=== PATIENT | male | born 1950 | race Caucasian/White ===

== ENCOUNTER 2017-09-14 04:04 | Inpatient (IN) | payer BC ==
--- NOTE | 2017-09-14 04:14 | EDPHY ---
H & P Time Seen by Provider: 09/14/17 04:07 HPI/ROS: CC: Chest pain HPI: This 67-year-old male with past medical history including hyperlipidemia, hypothyroidism, borderline hyperglycemia and enlarged prostate presents to the emergency department this morning complaining of chest discomfort. States he went to bed at midnight and was feeling fine. The pain woke him up at 3:30 a.m.. It was in his central chest maybe slightly to the right and radiated " all over" and especially to his right elbow. He described the pain as sharp and rated it at a 7/10 at onset. Currently it is 2/10. He tried some Gaviscon without relief. He denied aggravating factors. He has no nausea, diaphoresis, or shortness of breath. He was at the gym this evening for the 2nd time this month after not going for quite some time. He lifted free weights only. Was not on the treadmill. He had no discomfort while at the gym. He does describe a few episodes of upper chest pressure when he walks briskly. He had an episode of this sort yesterday without any other associated symptoms. He states he had dinner at 5:00 p.m. yesterday consisting of green beans and pork. After the gym he had a slice of bread but drank a large amount of apple cider. His chest discomfort feels like when he had pneumonia and also when he has had reflux in the past. He has only had a few episodes of reflux. He has not had any recent workup on his heart. Had a nuclear stress test in [place] about 12 years ago and states it was negative. He is allergic to aspirin. He does not smoke. He drinks perhaps 1 glass of alcohol per month. No recent illness. REVIEW OF SYSTEMS: Constitutional: No fever, no chills. Eyes: No discharge. ENT: No sore throat. Respiratory: No cough, no shortness of breath. Cardiac: No palpitations. Gastrointestinal: No abdominal pain, no vomiting. Genitourinary: No dysuria. Musculoskeletal: No back pain. Occasional right knee pain. Skin: No rashes. Neurological: No headache. Source: Patient, Family () Exam Limitations: No limitations - Medical/Surgical History PMH: Past Medical History: Hyperlipidemia, hypothyroidism, impaired fasting glucose , enlarged prostate, elevated intra-ocular pressure thought to be early glaucoma , migraine headaches, pneumonia, arthritis right knee, colon polyps on colonoscopy 1 year ago. Past Surgical History: Thyroidectomy, Tonsillectomy, Sinus Surgery FH: Father had congenital valvular disease. Uncles had MS's later in life. No premature coronary artery disease. Allergies to Aspirin ("capillary breakage/leakage"), Penicillin (Hives), Epinephrine (palpitations during dental work x 2 separate occasions) PCP: Dr. Sheehan Hx Asthma: No Hx Chronic Respiratory Disease: No Hx Diabetes: No Hx Cardiac Disease: No Hx Renal Disease: No Hx Cirrhosis: No Hx Alcoholism: No Hx HIV/AIDS: No Hx Splenectomy or Spleen Trauma: No Other PMH: thyroid - Family History Significant Family History: Vascular disease - Social History Smoking Status: Never smoked Alcohol Use: Occasionally Drug Use: None Additional Social History: . Previously lived in [place]. From [facility]. 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 - Physical Exam Exam: General Appearance: Alert, anxious. Eyes: Pupils equal and round no pallor or injection. ENT, Mouth: Mucous membranes are moist. Respiratory: There are no retractions, lungs are clear to auscultation. Cardiovascular: Regular rate and rhythm. No murmur, gallops, or rubs. Gastrointestinal: Abdomen is soft and nontender, no masses, bowel sounds normal. Neurological: Awake and alert, sensory and motor exams grossly normal. Skin: Warm and dry, no rashes. Normal for ethnicity. Musculoskeletal: Neck is supple, nontender. No bruits. No JVD. Extremities are symmetrical, full range of motion. No edema. Psychiatric: Patient is oriented X 3, there is no agitation. DIFFERENTIAL DIAGNOSIS: After history and physical exam differential diagnosis was considered for but not limited to: Acute coronary syndrome, angina, aortic aneurysm, aortic dissection, gastroesophageal reflux, biliary disease, pancreatitis, pleuritic pain. Constitutional: Initial Vital Signs Temperature (C) 97.5 F 09/14/17 04:12 Heart Rate 79 09/14/17 04:12 Respiratory Rate 16 09/14/17 04:12 Blood Pressure 169/98 H 09/14/17 04:12 O2 Sat (%) 98 09/14/17 04:12 O2 Delivery Mode Nasal Cannula O2 (L/minute) 2 Allergies/Adverse Reactions: aspirin [Aspirin] Allergy (Severe, Verified 09/14/17 04:27) Other-Enter Comments Penicillins Allergy (Severe, Verified 09/14/17 04:27) Hives epinephrine Allergy (Intermediate, Verified 09/14/17 04:28) Other-Enter Comments Home Medications: Medication Instructions Recorded Levothyroxine [Synthroid 88 mcg 11/12/12 (RX)] Gaviscon Liquid 09/14/17 Medical Decision Making - Diagnostics EKG Interpretation: EKG # 1 at 0406 - normal sinus rhythm, heart rate 73, no acute ischemic changes EKG #2 at 0456 - normal sinus rhythm, heart rate 80, borderline prolonged QT. No acute ischemic changes. Similar to EKG [address] changes in lead 3 when compared to EKG 1. Imaging Results: Portable CXR - Slightly rotated; No infiltrate, no effusion, no pneumothorax. Mediastinum slightly widened most likely due to technique and slight rotation. Opacity LLL also seen on prior film but more pronounced on current film. Consider repeat 2 view chest x-ray. Imaging: I viewed and interpreted images myself ED Course/Re-evaluation: The patient was seen and examined. Vital signs reviewed. On admission his blood pressure was elevated at 160 9/98 mm of mercury. This drifted down to the 130s mm of mercury systolic prior to medication administration. The patient has an allergy to aspirin and therefore no aspirin was given. His 1st EKG was normal. He declined nitroglycerin as his pain was coming down and was now a 2/10 from 12/25. Chest x-ray showed no acute findings by my read, please refer to final radiology read. CBC and comprehensive metabolic panel including a lipase was remarkable only for an elevated blood glucose at 1:23 a.m.. His troponin came back elevated at 0.096. His pain was still 1/10 at this time and he agreed to try a single dose of sublingual nitroglycerin which relieved his discomfort completely. A 2nd EKG was very similar to the 1st without significant ischemic changes. There was nonspecific ST - T wave abnormalities isolated to lead 3 which was not seen on EKG 1, although there was mild baseline artifact on EKG 1. He has a heart score of 5. He will be transferred to the [facility] for further observation. Admission discussed with and accepted by Hospitalist, Dr. Alma Ladd. - Data Points Laboratory Results: Laboratory Results 09/14/17 04:10 09/14/17 04:10 09/14/17 09/14/17 04:10 04:10 WBC 11.32 10^3/uL H 10^3/uL (3.80-9.50) RBC 5.53 10^6/uL 10^6/uL (4.40-6.38) Hgb 16.1 g/dL g/dL (13.7-17.5) Hct 47.0 % % (40.0-51.0) MCV 85.0 fL fL (81.5-99.8) MCH 29.1 pg pg (27.9-34.1) MCHC 34.3 g/dL g/dL (32.4-36.7) RDW 13.4 % % (11.5-15.2) Plt Count 246 10^3/uL 10^3/uL (150-400) MPV 8.8 fL fL (8.7-11.7) Neut % (Auto) 48.0 % % (39.3-74.2) Lymph % (Auto) 39.8 % % (15.0-45.0) [place] % (Auto) 8.2 % % (4.5-13.0) Eos % (Auto) 3.2 % % (0.6-7.6) Baso % (Auto) 0.4 % % (0.3-1.7) Nucleat RBC Rel Count 0.0 % % (0.0-0.2) Absolute Neuts (auto) 5.44 10^3/uL 10^3/uL (1.70-6.50) Absolute Lymphs (auto) 4.50 10^3/uL H 10^3/uL (1.00-3.00) Absolute Monos (auto) 0.93 10^3/uL H 10^3/uL (0.30-0.80) Absolute Eos (auto) 0.36 10^3/uL 10^3/uL (0.03-0.40) Absolute Basos (auto) 0.05 10^3/uL 10^3/uL (0.02-0.10) Absolute Nucleated RBC 0.00 10^3/uL 10^3/uL (0-0.01) Immature Gran % 0.4 % % (0.0-1.1) Immature Gran # 0.04 10^3/uL 10^3/uL (0.00-0.10) Sodium 143 mEq/L mEq/L (135-145) Potassium 4.2 mEq/L mEq/L (3.5-5.2) Chloride 102 mEq/L mEq/L (97-110) Carbon Dioxide 26 mEq/l mEq/l (22-31) Anion Gap 15 mEq/L mEq/L (8-16) BUN 22 mg/dL mg/dL (7-23) Creatinine 1.2 mg/dL mg/dL (0.7-1.3) Estimated GFR > 60 Glucose 129 mg/dL H mg/dL (70-100) Calcium 9.3 mg/dL mg/dL (8.5-10.4) Total Bilirubin 0.5 mg/dL mg/dL (0.1-1.4) Conjugated Bilirubin 0.2 mg/dL mg/dL (0.0-0.5) Unconjugated Bilirubin 0.3 mg/dL mg/dL (0.0-1.1) AST 30 IU/L IU/L (17-59) ALT 50 IU/L IU/L (21-72) Alkaline Phosphatase 61 IU/L IU/L (38-126) Troponin I 0.096 ng/mL H ng/mL (0.000-0.034) Total Protein 7.3 g/dL g/dL (6.3-8.2) Albumin 3.8 g/dL g/dL (3.5-5.0) Lipase 154 IU/L IU/L (23-300) Medications Given: Discontinued Medications Nitroglycerin (Nitrostat) 0.4 mg SL EDNOW ONE Stop: 09/14/17 04:25 Last Admin: 09/14/17 04:27 Dose: Not Given Nitroglycerin (Nitrostat) 0.4 mg SL EDNOW ONE Stop: 09/14/17 04:50 Last Admin: 09/14/17 04:30 Dose: 0.4 mg Departure - Departure Disposition: [facility] Inpatient Acute Clinical Impression: Chest pain Condition: Good
[2017-09-14 04:20] LABS: PLATELET COUNT 246 10^3/uL (150-400)
[2017-09-14] MEDS ORDERED: NITROGLYCERIN 0.4 MG BTL SL ONE ×3 (04:22→04:49)
--- NOTE | 2017-09-14 04:50 | CPEKG ---
Heart Rate: 73 RR Interval: 822 P-R Interval: 164 QRSD Interval: 96 QT Interval: 404 QTC Interval: 446 P [place]: 44 QRS [place]: 2 T Wave [place]: 31 EKG Severity - NORMAL ECG - EKG Impression: SINUS RHYTHM Electronically Signed By: Charmaine Rogers 14-Sep-2017 05:57:17
--- NOTE | 2017-09-14 04:58 | CPEKG ---
Heart Rate: 80 RR Interval: 750 P-R Interval: 176 QRSD Interval: 92 QT Interval: 412 QTC Interval: 476 P [place]: 41 QRS [place]: -9 T Wave [place]: 18 EKG Severity - BORDERLINE ECG - EKG Impression: SINUS RHYTHM EKG Impression: BORDERLINE PROLONGED QT INTERVAL Electronically Signed By: Charmaine Rogers 14-Sep-2017 05:57:09
[2017-09-14] MEDS ORDERED: NITROGLYCERIN 2% 1 GM PACKET TP ONE ×2 (05:45→05:48)
--- NOTE | 2017-09-14 05:51 | CPEKG ---
Heart Rate: 64 RR Interval: 938 P-R Interval: 180 QRSD Interval: 92 QT Interval: 432 QTC Interval: 446 P [place]: 50 QRS [place]: 8 T Wave [place]: 19 EKG Severity - NORMAL ECG - EKG Impression: SINUS RHYTHM Electronically Signed By: Charmaine Rogers 14-Sep-2017 05:56:58
[2017-09-14] MEDS ORDERED: HYDROCODONE/APAP 5/325 TAB PO PRN (07:58)
[2017-09-14] MEDS ORDERED: ACETAMINOPHEN 325 MG TAB PO PRN ×2 (07:58→09:11)
[2017-09-14] MEDS ORDERED: ONDANSETRON 4 MG/2 ML VIAL IVP PRN ×2 (07:58→09:11)
[2017-09-14] MEDS ORDERED: NITROGLYCERIN 0.4 MG BTL SL PRN (08:11)
[2017-09-14] MEDS ORDERED: ONDANSETRON DISINTEGRATING 4 MG TAB PO PRN (09:11)
[2017-09-14] MEDS ORDERED: CLOPIDOGREL BISULFATE 75 MG TAB PO SCH (09:15)
[2017-09-14] MEDS: LEVOTHYROXINE 88 MCG TAB PO SCH (09:23)
[2017-09-14] MEDS: NS 1,000 ML IV SCH (09:23)
[2017-09-14] MEDS ORDERED: METOPROLOL TARTRATE 25 MG TAB PO SCH (09:30)
--- NOTE | 2017-09-14 10:08 | GHP ---
[f rep st] HISTORY AND PHYSICAL DATE OF ADMISSION: 09/14/2017 HISTORY OF PRESENT ILLNESS: The patient is a pleasant 67-year-old gentleman with history of prediabe jerzy and hypertension, in which he is not on any medications, who presents with chest pain. He has no ticed over the last couple of weeks that he has had an uncomfortable feeling in his throat with brisk walking, and then this morning at 3:30 a.m., he woke up with pressure in his chest. He took some Ga viscon and it did not help. He has a history of heartburn that does respond to Gaviscon, so he sough t care, where he was found to have an elevated troponin, but an unremarkable EKG. The patient does not appear to have had prior cardiac workup. He has pre diabetes and high blood pre ssure, which are not being treated. He has occasional lower extremity edema that is really the redmond in his socks. He does not have orthopnea or PND. He has not had fever or chills. He had a recent sinus infection treated with doxycycline. Patient is currently chest pain-free. REVIEW OF SYSTEMS: A complete 10-point review of systems conducted and negative, except as noted in the HPI. ALLERGIES: Aspirin, penicillins, and epinephrine. To aspirin, it sounds like he gets bruising, not anaphylaxis. HOME MEDICATIONS ARE: Levothyroxine and Tylenol. SOCIAL HISTORY: He is originally from [facility]. 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 He lives in the [facility]. He is a nonsmoker, rare alcohol. FAMILY HISTORY: Parents . PHYSICAL EXAMINATION: Temperature 37.1, blood pressure 141/83, pulse 79, breathing 15 times a minute , 96% on room air. In general, no acute distress. Sclerae are anicteric. Oropharynx clear. Mucous membranes are moist. Neck is supple without lymphadenopathy or JVD. Lungs are clear to auscultatio n bilaterally. Heart is S1, S2. Abdomen is soft, nontender, nondistended. Lower extremities show t race edema bilaterally. Calves are nontender. Skin without rash. Neurologic exam is nonfocal. LABORATORY DATA: Sodium is 142, potassium 4.2, chloride 102, bicarb 26, BUN 22, creatinine 1.2. LFT s normal. Troponin is 0.096 at 4:00 a.m. and at 6:00 a.m., it is 0.152. Lipase is 154. CBC shows a white count of 11.3, hematocrit 47, platelets 246,000. EKGs, interpreted by me, have shown sinus at 80 with normal axis and intervals. There are no ST or T -wave changes. He has some peak Ts across the precordium. Serial EKGs are essentially the same. Chest x-ray shows possible CHF versus poor inspiratory effort. I have discussed the case with URSULA Rojas, for the cardiology division. ASSESSMENT AND PLAN: This is a 67-year-old gentleman, who presents with ifq-TB-bdlheoifm myocardial infarction. 1. Nym-HN-ibtojvidz myocardial infarction. The patient is currently chest pain-free. He is likely a candidate for cardiac catheterization; however, the aspirin allergy is noted. Certainly, I think t hat the patient could probably tolerate aspirin. I have started him on Plavix and a beta danelle. I will check a lipid panel and A1c. 2. Hypothyroidism. Continue his levothyroxine. 3. Diabetes. The patient's glucose is relatively unremarkable. We will follow. We will check a he moglobin A1c. 4. Lower extremity edema. Echocardiogram probably indicated. We will wait for Cardiology to see jun spears. 5. Disposition. We will change him to inpatient status, given NSTEMI. /[id number]/MODL
--- NOTE | 2017-09-14 11:38 | PDMN ---
Medical Necessity Medical necessity: M230 DE-- NSTEMI 2 days - further monitoring , eval and tx needed
[2017-09-14] MEDS ORDERED: TEMAZEPAM 15 MG CAP PO PRN (12:00)
[2017-09-14] MEDS ORDERED: diphenhydrAMINE 25 MG CAP PO ONE (12:00)
[2017-09-14] MEDS ORDERED: DIAZEPAM 5 MG TAB PO ONE (12:00)
[2017-09-14] MEDS ORDERED: FAMOTIDINE 20 MG TAB PO ONE (12:00)
[2017-09-14] MEDS ORDERED: fentaNYL 100 MCG/2 ML INJ ONE (13:28)
[2017-09-14] MEDS ORDERED: LIDOCAINE 1% 300 MG/30 ML SDV ONE (13:28)
[2017-09-14] MEDS ORDERED: MIDAZOLAM 2 MG/2 ML VIAL ONE (13:29)
[2017-09-14] MEDS ORDERED: IOPAMIDOL (ISOVUE-370) 150 ML BTL IV ONE (13:29)
[2017-09-14] MEDS ORDERED: VERAPAMIL 5 MG/2 ML VIAL ONE (13:30)
[2017-09-14] MEDS ORDERED: HEPARIN 10,000 UNIT/10 ML MDV (1,000 UNIT/ML) ONE (13:31)
--- NOTE | 2017-09-14 13:42 | PDPROPOC ---
Sedation Plan of Care Sedation Plan of Care: vital signs stable, mental status noted, patient educated of risks, benefits, alternatives, patient can tolerate sedation ASA Classification: ASA 2 Planned drugs: fentanyl, midazolam Mallampati Score: Class 1 Mallampati Reference Image: Patient passed 3-3-2 rule?: Yes
--- NOTE | 2017-09-14 13:43 | PDHPUP ---
History & Physical Update H&P update statement: This history and physical update is based on an assessment of the patient which was completed after admission or registration (within 24 hours), but prior to the surgery/procedure. H&P update: H&P reviewed & patient examined, no change in patient's condition since H&P completed
--- NOTE | 2017-09-14 13:48 | ASMTCASEMG ---
Living Arrangements What is your living Answers: With Spouse arrangement? Who do you live with? Type Of Residence What kind of residence do Answers: House you live in? Discharge Plan Comments Coordination Status Comments Notes: Pts case reviewed in morning rounds. Pt is a 67 y/o man admitted for chest pain. Pt is currently NPO at this moment. Pt is being seen by cardiology. Pt will most likely d/c independent when medically stable. No therapies ordered at this time. CM available for changes. Plan: Independent Date Signed: 09/14/2017 01:47 PM Electronically Signed By:NIMCO Moreno
--- NOTE | 2017-09-14 14:15 | GCON ---
[f rep st] CONSULTATION CARDIOLOGY CONSULTATION. INDICATION FOR CARDIOLOGY CONSULTATION: Episode of chest pressure with elevated troponin levels. HISTORY OF PRESENT ILLNESS: The patient is a 67-year-old male with significant past history of borderline hypertension, borderline diabetes, hyperlipidemia, hypothyroidism. He reports yesterday, it had been multiple months since he had exercised routinely, due to work schedule. He had exercised last evening, extremely vigorously, came home. He was asymptomatic at that time but reporting significant thirst, drinking large amount of apple juice at that point. He proceeded with his regular routine evening and went to bed. He reported waking up at 3:30 this morning, and he described a midsternal chest heaviness, rating it as 6/10. He did feel like this was similar symptoms that he had with previous upper GI distress and GERD symptoms. Feeling that, initially attempting to sit up and trying to burp. He reported symptoms did not subside. He did notice some mild shortness of breath and, due to symptoms, came to the emergency department for further evaluation. Upon arrival, initial EKG did show sinus rhythm with notable peak T-waves in V2 through V4, but no acute ST or T-wave abnormalities. Initial troponin level was drawn which was 0.096. Patient was given 1 sublingual nitroglycerin which he reported helped symptoms significantly and was almost pain free. He was admitted to the PCU for further observation. Unfortunately, throughout the evening, his troponin levels have risen, and most recent troponin level taken at 9:54 this morning was 0.267. He reports at the time of examination, reporting since hospitalization, having a midsternal mild mid chest pressure that has been coming and going but only lasting for a few seconds, rating at 1/10. He has had nitroglycerin paste in place, which he feels his symptoms. Patient does report to me that, for the last few days, he has been noticing, when extreme exercise, of having a tightness in his throat. He denies any palpitations, orthopnea, PND, palpitations, edema, near syncope, or syncopal events. Reporting no symptoms suggestive of TIA or CVA. He does report most recently having a sinus infection, for which he was treated with doxycycline a few weeks ago. Patient's cardiac risk factors are age, sex, borderline hypertension, borderline diabetes, hyperlipidemia. PAST MEDICAL HISTORY: Includes borderline hypertension, borderline diabetes, hypothyroidism, history of hyperlipidemia for which the patient states that he had been on multiple statins in the past greater than 5 years ago, to which he experienced adverse reactions of back pain and leg pain and took himself off. PAST SURGICAL HISTORY: Includes previous sinus surgery, thyroidectomy, and tonsils and adenoids when he was a child. FAMILY HISTORY: Patient reports no significant family history of coronary artery disease, but he does say his father had congenital heart disease and at age 67 of unknown reason. Reporting Mother had history of multiple CVAs , dying of a stroke event, her third stroke. 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 He is . He has 2 adult children who are alive and well. Denies any smoking, reports occasional alcohol use, denies any illicit drug use. ALLERGIES: Stated allergy of aspirin, reporting causing significant itching and bleeding. He also reports allergies to penicillin and epinephrine. He reports he has been noted to be statin intolerant, but uncertain of the medications that he has been on. HOME MEDICATIONS: Acetaminophen 325 mg p.o. daily p.r.n., Synthroid 88 mcg p.o. daily. REVIEW OF SYSTEMS: A 10-point review of systems done on the patient all negative, except as mentioned above. PHYSICAL EXAMINATION: GENERAL APPEARANCE: Medium built, mildly obese male. He is alert and oriented to person, place, time, and situation. Appears to be under no acute distress at this time. VITAL SIGNS: Current blood pressure is 140/84, heart rate of 81, respirations 18, saturating 95% on room air. Temperature of 36.8 degrees Celsius. HEENT: Head is normocephalic. Lips and tongue are pink and moist with no signs of cyanosis. Conjunctivae pink. NECK: Trachea is midline, +2 carotid pulses bilateral. No auscultated bruits. No jugular vein distention. RESPIRATORY: Lungs are clear to auscultation. No rhonchi, rales, or wheezes. No accessory muscle use. No intercostal muscle retraction noted. CARDIAC: Regular rate, regular rhythm. S1, S2. No S3, S4, gallops, rubs, or murmur. ABDOMEN: Soft, nontender, bowel sounds x4 quadrants. No organomegaly. No palpable masses. SKIN: [place], warm, dry. No cyanosis, no clubbing, no peripheral edema. VASCULAR: +2 carotids bilateral, +2 radials bilateral, +1 dorsal pedal and posterior tibial pulses bilateral. DATA REVIEWED: Laboratory studies drawn today show WBC of 11.32, hemoglobin of 16.1, hematocrit of 47.0, platelet count 246. Sodium 143, potassium 4.2, chloride 102, CO2 of 26, BUN 22, creatinine 1.2, glucose 129, calcium 9.3, total bilirubin 0.5, AST 30, ALT 50, alkaline phosphatase 62, total protein 7.3 , albumin 3.8. Patient has had 3 troponin levels, initial 0.096, repeated at 6 a.m. was 0.152 and, at 9:30 this morning, it was 0.267. Lipase was 154. Fasting lipid panel done today showed triglycerides 136, total cholesterol 168, LDL 108, HDL 33. Serial electrocardiograms have showed sinus rhythm, with peak T-waves in V2 through V4, but no acute ST or T-wave abnormalities. Chest x-ray done on admission show slight increase in linear left basilar opacity, most likely related to atelectasis or scarring, but no acute cardiopulmonary process. ASSESSMENT AND PLAN: 1. Chest pressure: Patient was reporting episode of chest pressure this morning and had reported episodes of neck/throat tightness with exercise over the last 1-2 weeks. Electrocardiogram today shows no acute ST or T-wave abnormalities suggesting of ischemia, but troponin levels have increased at least since hospitalization. Recommendation is patient undergo urgent cardiac catheterization for further evaluation for possible cardiac ischemia. Risks and benefits of this procedure were explained, both to the patient and . They verbalize understanding and agreement. The patient has a known allergy to aspirin. Hospitalist services started him on Plavix which he has already received a dose. He has also been started on beta danelle of Lopressor. Due to the acuteness of him going to the cardiac catheterization, will hold off on starting him on anticoagulation at this time, for anticipation of cath within the next 30-40 minutes. Further recommendations will come postcatheterization. 2. Hyperlipidemia: Patient with noted history of hyperlipidemia. Pending results of his catheterization, consideration of restarting him on statin therapies. He reports it has been multiple years since starting on these medications, but patient says he is willing to attempt. Would consider starting Crestor with goal of getting LDL of less than 70. 3. Hyperthyroidism: Patient has been resumed on home Synthroid level. Thank you for this consultation. Will be glad to follow along with you. More recommendations to come post cardiac catheterization. /[id number]/MODL MTDD
[2017-09-14] MEDS ORDERED: ATROPINE SULFATE 1 MG/10 ML SYR IVP PRN (16:07)
--- NOTE | 2017-09-14 16:58 | PDDXCAT ---
Diagnostic Cath Note - . Date: 09/14/17 Senior Media Planner: Robby Indication: CCC Class III and IV angina on medical treatment - Procedure Access: right wrist Procedure: left heart catheterization, coronary angiography, left ventriculogram - Materials Left Heart Cath size: 5F Left Heart Cath materials: JL3.5, pigtail, Jose Martin's R - Findings-Left Heart Catheterization LM: Unobstructed LAD: 75% stenosis of the proximal segment. 80-85% stenosis of the proximal diagonal. LCX: 99% occlusion of the dominant obtuse marginal branch RCA: Tandem 99% ulcerated plaque involving the mid and distal RCA EDP: 10 mm of mercury LVEF: 70% Wall motion: Normal Complications: None Estimated blood loss: <50ml Closure method: TR Band Assessment: Severe multivessel coronary disease with preserved LV systolic function Plan: Surgical consultation. Heparin. Aggressive secondary prevention. Patient Problems: Problems Problem Status Onset Chest pain Acute
[2017-09-14] MEDS ORDERED: HEPARIN 10,000 UNIT/10 ML MDV (1,000 UNIT/ML) IVP PRN (17:17)
[2017-09-14 18:33] LABS: PLATELET COUNT 231 10^3/uL (150-400)
[2017-09-14 18:41] LABS: INR 1.06 (0.83-1.16)
[2017-09-14] MEDS: METOPROLOL TARTRATE 25 MG TAB PO SCH (20:35)
[2017-09-14] MEDS: NITROGLYCERIN 2% 1 GM PACKET TP SCH (20:36)
[2017-09-14] MEDS: ROSUVASTATIN CALCIUM 20 MG TAB PO SCH (20:36)
[2017-09-14] MEDS ORDERED: CALCIUM CARBONATE 500 MG CHEWABLE TAB PO PRN (22:48)
[2017-09-14] MEDS ORDERED: MAG HYDROX/AL HYDROX/SIMETH 30 ML UDCUP PO PRN (22:48)
[2017-09-15] MEDS: NITROGLYCERIN 2% 1 GM PACKET TP SCH ×4 (00:53→18:00)
[2017-09-15] MEDS: LEVOTHYROXINE 88 MCG TAB PO SCH (04:57)
[2017-09-15] MEDS: METOPROLOL TARTRATE 25 MG TAB PO SCH ×2 (09:34→22:06)
--- NOTE | 2017-09-15 10:29 | SOAPPROG ---
SOAP Progress Note Assessment/Plan: Assessment: 1. Multivessel coronary artery disease with preserved LV systolic function. 09/15/17 10:23 Day 1. Status post cardiac catheterization for non-Q-wave myocardial infarction. This is associated with critical 3 vessel disease and preserved LV function. He is hemodynamically stable with out further chest pain. No evidence of heart failure. He is on heparin awaiting coronary artery bypass grafting. Optimize secondary risk factors. Heparin until coronary artery bypass grafting. Subjective: Doing well. Upped shower. No chest pain, shortness of breath. No PND orthopnea. Objective: Vital Signs Temp Pulse Resp BP Pulse Ox 37.2 C 67 15 108/62 92 09/15/17 07:31 09/15/17 07:31 09/15/17 07:31 09/15/17 07:31 09/15/17 07:31 Laboratory Results 09/15/17 03:24 09/15/17 03:24 09/14/17 09/15/17 09/16/17 05:59 05:59 05:59 Intake Total 1936 Output Total 1000 150 Balance 936 -150 PT 14.0 SEC (12.0-15.0) 09/14/17 18:26 INR 1.06 (0.83-1.16) 09/14/17 18:26 Physical Exam - Physical Exam General Appearance: alert, no apparent distress EENT: PERRL/EOMI Neck: non-tender, full range of motion Respiratory: chest non-tender, lungs clear, normal breath sounds Cardiac/Chest: normal peripheral pulses, regular rate, rhythm, No edema, No gallop, No JVD Peripheral Pulses: 1+: carotid (R), carotid (L), femoral (R), femoral (L) Abdomen: normal bowel sounds, non-tender, soft, No organomegaly Back: Normal inspection Skin: normal color, warm/dry Lymphatic: no adenopathy Extremities: normal range of motion, No pedal edema Neuro/Psych: no motor/sensory deficits, alert, normal mood/affect, oriented x 3 ICD10 Worksheet Patient Problems: Problems Problem Status Onset Chest pain Acute Review of Systems - Review of Systems Constitutional: denies: chills, fever EENTM: no symptoms reported Respiratory: no symptoms reported Cardiac: no symptoms reported Gastrointestinal/Abdominal: no symptoms reported Genitourinary: no symptoms Musculoskelatal: no symptoms Skin: no symptoms Neurological: no symptoms Hematologic/Lymphatic: no symptoms reported Immunologic/allergic: no symptoms reported
[2017-09-15] MEDS: HEPARIN/DEXTROSE 500 ML IV SCH (12:51)
--- NOTE | 2017-09-15 13:04 | HOSPPROG ---
Hospitalist Progress Note Assessment/Plan: 67 yo M w dm here w NSTEMI. cath reveals 3 vessel disease cad: on heparin CT surgery eval no chest sx on BB and statin will add aspirin dm: good control continue current rx hypothyroidism: check tsh proph: on IV heparin dispo: inpt risk: high Subjective: case d/w dr pickard. tele: no events (interp by me) Objective: Vital Signs Temp Pulse Resp BP Pulse Ox 37.2 C 67 15 108/62 92 09/15/17 07:31 09/15/17 07:31 09/15/17 07:31 09/15/17 07:31 09/15/17 07:31 Laboratory Results 09/15/17 03:24 09/15/17 03:24 09/14/17 09/15/17 09/16/17 05:59 05:59 05:59 Intake Total 1936 Output Total 1000 150 Balance 936 -150 PT 14.0 SEC (12.0-15.0) 09/14/17 18:26 INR 1.06 (0.83-1.16) 09/14/17 18:26 - Physical Exam Constitutional: no apparent distress, appears nourished Eyes: PERRL, anicteric sclera Ears, Nose, Mouth, Throat: moist mucous membranes, hearing normal Cardiovascular: regular rate and rhythym, no murmur, rub, or gallop Respiratory: no respiratory distress, no rales or rhonchi Gastrointestinal: normoactive bowel sounds, soft, non-tender abdomen Genitourinary: no bladder fullness, No molina in urethra Skin: warm, normal color Musculoskeletal: full muscle strength Neurologic: AAOx3 ICD10 Worksheet Patient Problems: Problems Problem Status Onset Chest pain Acute
--- NOTE | 2017-09-15 15:47 | ECHO ---
[email or web address] [address] Main: [phone] Fax: Transthoracic Echocardiogram Name: SHWETHA SALAZAR MR#: [id number] Study Date: 09/15/2017 Study Time: 02:40 PM Date of : 1950 Age: 67 year(s) Height: 180.3 cm (71 in.) Weight: 110.22 kg (243 lb.) BSA: 2.29 m2 Gender: Male Examination: Echo Indication: pre-op CABG; assess valves Image Quality: Technically Difficult Contrast: Requested by: Wally Munguia BP: 127 mmHg/76 mmHg Heart Rate: 64 bpm Rhythm: Normal sinus rhythm Indication: pre-op CABG; assess valves Procedure Staff Loop Tacker: Erica Whitmore [facility] Reading Physician: Richie Bustamante MD Requesting Provider: Conclusions: No pericardial effusion. Concentric left ventricular hypertrophy. Normal LV systolic function. No significant valvular abnormalities by Doppler 2 dimensional study. Measurements: Chambers Valvular Assessment AV/MV Valvular Assessment TV/PV Normal Normal Normal Name Value Range Name Value Range Name Value Range Ao Krystal (MM): 3.7 cm (2.2 cm-3.7 AV Vmax: 1.10 m/s (1 m/s-1.7 TR Vmax: 2.47 mm/s ( - ) cm) m/s) TR PGmax: 24 mmHg ( - ) IVSd (2D): 1.0 cm (0.6 cm-1.1 AV maxP mmHg ( - ) syst. PAP: 29 mmHg ( - ) cm) LVOT Vmax: 0.91 m/s (0.7 m/s-1.1 PV Vmax: 1.01 m/s (0.6 m/s-0.9 LVDd (2D): 4.2 cm (4.2 cm-5.9 m/s) m/s) cm) MV E Vmax: 0.73 m/s ( - ) PV PGmax: 4 mmHg ( - ) LVDs (2D): 2.7 cm (2.1 cm-4 MV A Vmax: 0.49 m/s ( - ) cm) MV E/A: 1.49 ( - ) LVPWd (2D): 1.1 cm (0.6 cm-1 cm) LVEF (BP): 67 % (>=55 %) RVDd(2D): 3.7 cm (1.9 cm-3.8 cmmm) Continued Measurements: Chambers Valvular Assessment AV/MV Valvular Assessment TV/PV Name Value Name Value Name Value LADs Lon.2 cm MV DecTime: 215 m/s CVP (est.): 5 mmHg LA Area: 17.7 cm2 MV E' Septal: 0.08 m/s LA Volume: 69 ml MV E/E' Septal: 9.50 LA Volume Index: 30.1 ml/m2 MV E/E' Lateral: 6.80 RA Area: 17.0 cm2 Patient: SHWETHA SALAZAR Study Date: 09/15/2017 Page 1 of 2 02:40 PM Findings: Left Ventricle: Normal size left ventricle. Mild concentric LV hypertrophy. Normal global systolic LV function. EF is 67 %. No regional wall motion abnormality. Normal diastolic LV function. Right Ventricle: Normal size right ventricle. Normal RV function. Left Atrium: The left atrium is normal in size. Right Atrium: The right atrium is normal in size. Mitral Valve: The mitral valve is normal in appearance and function. Trivial mitral valve regurgitation. No mitral stenosis is present. Aortic Valve: The aortic valve is tri-leaflet and functions normally. There is no aortic valve regurgitation. No aortic valve stenosis is present. Tricuspid Valve: The tricuspid valve is normal in appearance and function. Trivial to mild tricuspid valve regurgitation. The pulmonary artery pressure is normal. Pulmonic Valve: The pulmonic valve is normal in appearance and function. There is no pulmonic regurgitation seen. Aorta: The aorta is normal. Normal size aortic root measuring 3.7 cm. IVC: The IVC is not visualized. Pericardium: No pericardial effusion. (No Signature Object) Patient: SHWETHA SALAZAR Study Date: 09/15/2017 Page 2 of 2 02:40 PM [id number]
[2017-09-15] MEDS: NS 1,000 ML IV SCH (16:43)
[2017-09-15] MEDS ORDERED: LORazepam 0.5 MG TAB PO PRN (19:05)
[2017-09-15] MEDS: ROSUVASTATIN CALCIUM 20 MG TAB PO SCH (22:05)
[2017-09-16] MEDS: NITROGLYCERIN 2% 1 GM PACKET TP SCH ×4 (03:41→18:05)
[2017-09-16] MEDS: LEVOTHYROXINE 88 MCG TAB PO SCH (04:29)
[2017-09-16] MEDS: METOPROLOL TARTRATE 25 MG TAB PO SCH ×2 (08:00→22:34)
--- NOTE | 2017-09-16 13:38 | HOSPPROG ---
Hospitalist Progress Note Assessment/Plan: 67 yo M w dm here w NSTEMI. cath reveals 3 vessel disease cad: on heparin CT surgery tomorrow no chest sx on BB and statin will add aspirin dm: good control continue current rx hypothyroidism: check tsh proph: on IV heparin dispo: inpt risk: high Subjective: wishes to stay here for CABG. case d/w dr pickard Objective: Vital Signs Temp Pulse Resp BP Pulse Ox 36.7 C 67 16 118/59 L 95 09/16/17 12:03 09/16/17 12:03 09/16/17 12:03 09/16/17 12:03 09/16/17 12:03 Laboratory Results 09/16/17 03:11 09/15/17 03:24 09/15/17 09/16/17 09/17/17 05:59 05:59 05:59 Intake Total 1936 1035 300 Output Total 1000 750 800 Balance 936 285 -500 PT 14.0 SEC (12.0-15.0) 09/14/17 18:26 INR 1.06 (0.83-1.16) 09/14/17 18:26 - Physical Exam Constitutional: no apparent distress, appears nourished Eyes: PERRL, EOMI Ears, Nose, Mouth, Throat: moist mucous membranes, hearing normal Cardiovascular: regular rate and rhythym, no murmur, rub, or gallop Respiratory: no respiratory distress, no rales or rhonchi Gastrointestinal: normoactive bowel sounds, soft, non-tender abdomen Genitourinary: no bladder fullness, No molina in urethra Skin: warm, normal color Musculoskeletal: full muscle strength, normal joint ROM Neurologic: AAOx3 ICD10 Worksheet Patient Problems: Problems Problem Status Onset Chest pain Acute
--- NOTE | 2017-09-16 14:07 | ASMTCMCOM ---
CM Note CM Note Notes: Pts case discussed in morning rounds. Pt will need to have a bypass surgery. Pt will most likely have the open heart tomorrow. CM to follow for d/c needs. Plan: Independent Date Signed: 09/16/2017 02:07 PM Electronically Signed By:NIMCO Moreno
[2017-09-16] MEDS: HEPARIN/DEXTROSE 500 ML IV SCH (18:02)
[2017-09-16] MEDS ORDERED: CHLORHEXIDINE GLUC HIBICLENS 118 ML BTL TP SCH (21:00)
[2017-09-16] MEDS: ROSUVASTATIN CALCIUM 20 MG TAB PO SCH (22:34)
[2017-09-17] MEDS: NITROGLYCERIN 2% 1 GM PACKET TP SCH ×3 (00:30→14:19)
[2017-09-17] MEDS ORDERED: ceFAZolin 2 GM/SWFI 2 GM/20 ML SYR IVP ONE (06:00)
[2017-09-17] MEDS ORDERED: CITRATE DEXTROSE SOLN 500 ML BAG MISC ONE (06:00)
[2017-09-17] MEDS ORDERED: INSULIN REGULAR HUMAN 100 UNIT in NS 100 ML IV ONE (06:00)
[2017-09-17] MEDS ORDERED: niCARdipine/NACL 200 ML IV SCH (06:00)
[2017-09-17] MEDS ORDERED: NOREPINEPHRINE BITARTRATE 16 MG in NS 250 ML IV ONE (06:00)
[2017-09-17] MEDS ORDERED: VERAPAMIL 5 MG, NITROGLYCERIN 2.5 MG, HEPARIN 500 UNIT, SODIUM BICARBONATE 0.2 MEQ in L... MISC ONE (06:00)
[2017-09-17] MEDS ORDERED: AMINOCAPROIC ACID 5 GM/20 ML VIAL IV ONE (06:00)
[2017-09-17] MEDS ORDERED: MANNITOL 25% 12.5 GM/50 ML VIAL IVP ONE (06:00)
[2017-09-17] MEDS ORDERED: MUPIROCIN 2% 22 GM OINT NS ONE (06:00)
[2017-09-17] MEDS ORDERED: PHENYLEPHRINE HCL 50 MG in NS 250 ML IV ONE (06:00)
[2017-09-17] MEDS ORDERED: MILRINONE/DEXTROSE/100 ML BAG IV ONE (06:57)
[2017-09-17] MEDS ORDERED: CALCIUM CHLORIDE 1 GM/10 ML INJ ONE ×4 (06:57→16:25)
[2017-09-17] MEDS ORDERED: PROTAMINE SULFATE 50 MG/5 ML VIAL IVP ONE (06:57)
[2017-09-17] MEDS ORDERED: niCARdipine/NACL/200 ML BAG IV ONE (06:58)
[2017-09-17] MEDS ORDERED: DOPamine/DEXTROSE/250 ML BAG IV ONE (06:58)
[2017-09-17] MEDS ORDERED: HEPARIN 10,000 UNIT/10 ML MDV (1,000 UNIT/ML) ONE ×2 (06:58→07:00)
[2017-09-17] MEDS ORDERED: NA BICARBONATE 50 MEQ/50 ML VIAL ONE ×2 (06:58→15:14)
[2017-09-17] MEDS ORDERED: ceFAZolin 1 GM VIAL ONE ×4 (06:59→13:21)
[2017-09-17] MEDS ORDERED: AMIODARONE HCL 150 MG/3 ML VIAL ONE ×2 (06:59→07:00)
[2017-09-17] MEDS ORDERED: ADENOSINE 6 MG/2 ML VIAL ONE (06:59)
[2017-09-17] MEDS ORDERED: ALBUMIN 5% 250 ML BOTTLE IV ONE ×2 (06:59→13:43)
[2017-09-17] MEDS ORDERED: LIDOCAINE 2% 100 MG/5 ML SYR ONE ×2 (07:00→08:15)
[2017-09-17] MEDS ORDERED: MAGNESIUM SULFATE 1 GM/2 ML VIAL ONE (07:00)
[2017-09-17] MEDS ORDERED: CITRATE DEXTROSE SOLN 500 ML BAG ONE (07:00)
[2017-09-17] MEDS ORDERED: methylPREDNISolone SOD SUCC 1 GM/8 ML VIAL ONE (07:01)
[2017-09-17] MEDS ORDERED: PAPAVERINE HCL 60 MG/2 ML SDV ONE (07:25)
[2017-09-17] MEDS ORDERED: MINERAL OIL 10 ML VIAL ONE (07:25)
[2017-09-17] MEDS ORDERED: VERAPAMIL 5 MG/2 ML VIAL ONE (07:25)
[2017-09-17] MEDS ORDERED: MIDAZOLAM 2 MG/2 ML VIAL ONE ×2 (07:54→08:12)
[2017-09-17] MEDS ORDERED: REMIFENTANIL HCL 1 MG VIAL ONE ×2 (08:12→10:24)
[2017-09-17] MEDS ORDERED: fentaNYL 250 MCG/5 ML INJ ONE (08:12)
[2017-09-17] MEDS ORDERED: PROPOFOL/EMULSION 500 MG/50 ML BOTTLE IV ONE ×2 (08:12→10:28)
[2017-09-17] MEDS ORDERED: DEXAMETHASONE 4 MG/ML VIAL ONE (08:15)
[2017-09-17] MEDS ORDERED: ROCURONIUM 100 MG/10 ML VIAL ONE (08:15)
[2017-09-17] MEDS ORDERED: PHENYLEPHRINE HCL 100 MCG/ML SYR ONE ×2 (08:15→09:29)
[2017-09-17] MEDS ORDERED: ONDANSETRON 4 MG/2 ML VIAL ONE (08:15)
[2017-09-17] MEDS ORDERED: LIDOCAINE HCL 160 MG/4 ML LTA KIT TP ONE (08:18)
[2017-09-17] MEDS: LEVOTHYROXINE 88 MCG TAB PO SCH (09:31)
[2017-09-17] MEDS: METOPROLOL TARTRATE 25 MG TAB PO SCH (09:32)
[2017-09-17] MEDS ORDERED: ESMOLOL HCL 100 MG/10 ML VIAL IV ONE (10:36)
[2017-09-17] MEDS ORDERED: MIDAZOLAM 2 MG/2 ML VIAL IVP ONE (12:13)
--- NOTE | 2017-09-17 12:17 | PDANEPAE ---
ANE History of Present Illness 3 v CAD s/f 5v CABG ANE Past Medical History - Cardiovascular History Hx Hypertension: Yes Hx Chest Pain: Yes Hx Coronary Artery / Peripheral Vascular Disease: Yes Hx Palpitations: Yes - Pulmonary History Hx Oxygen in Use at Home: No Hx Sleep Apnea: Yes Sleep Apnea Screening Result - Last Documented: Positive - Endocrine History Hx Diabetes: Yes Hypothyroid: Yes Obesity: yes, moderate - Other Health History Other Health History: dyslipidemia - Chronic Pain History Chronic Pain: Yes ANE Review of Systems Review of Systems: - Exercise capacity Exercise capacity: <4 METS - Systems Cardiac: Reports: chest pain ANE Patient History - Allergies Allergies/Adverse Reactions: aspirin [Aspirin] Allergy (Severe, Verified 09/14/17 04:27) Other-Enter Comments Penicillins Allergy (Severe, Verified 09/14/17 04:27) Hives epinephrine Allergy (Intermediate, Verified 09/14/17 04:28) Other-Enter Comments - Home Medications Home medications: home medication list seen and reviewed Home Medications: Levothyroxine [Synthroid 88 mcg (RX)] 88 mcg PO DAILY06 11/12/12 [Last Taken ] Acetaminophen [Tylenol 325mg (*)] 325 mg PO DAILY PRN 09/14/17 [Last Taken Unknown] - NPO status NPO Since - Liquids (Date): 09/17/17 NPO Since - Liquids (Time): 00:01 NPO Since - Solids (Date): 09/17/17 NPO Since - Solids (Time): 00:01 - Anes Hx Anes Hx: no prior problems - Smoking Hx Smoking Status: Never smoked - Alcohol Use Alcohol Use: Occasionally - Family Anes Hx Family Anes Hx: none ANE Labs/Vital Signs - Labs Result Diagrams: 09/16/17 03:11 09/15/17 03:24 - Vital Signs Blood Pressure: 134/80 Heart Rate: 69 Respiratory Rate: 16 O2 Sat (%): 90 Height: 180 cm Weight: 108.3 kg ANE Physical Exam - Airway Mallampati Score: Class 2 Mouth exam: normal dental/mouth exam, stephens - Pulmonary Pulmonary: no respiratory distress - Cardiovascular Cardiovascular: regular rate and rhythym ANE Anesthesia Plan Anesthesia Plan: general endotracheal anesthesia Lines/Monitors: arterial line, central line, JORDYN Urgent/Emergent Case: Jan roberto completed preop but documented later for safe timely pt care
[2017-09-17] MEDS ORDERED: fentaNYL 100 MCG/2 ML INJ ONE (13:01)
[2017-09-17] MEDS ORDERED: ROCURONIUM 50 MG/5 ML VIAL ONE (13:02)
[2017-09-17] MEDS ORDERED: MAGNESIUM SULF 2 GM/WATER 50 ML BAG IV ONE (13:33)
[2017-09-17] MEDS ORDERED: ACETAMINOPHEN 325 MG TAB PO PRN (14:08)
[2017-09-17] MEDS ORDERED: MAGNESIUM HYDROXIDE 30 ML UDCUP PO PRN (14:08)
[2017-09-17] MEDS ORDERED: MEPERIDINE 25 MG/ML SYR IVP PRN (14:08)
[2017-09-17] MEDS ORDERED: D50W 25 GM/50 ML SYR IVP PRN (14:08)
[2017-09-17] MEDS ORDERED: ACETAMINOPHEN 650 MG SUPP PR PRN (14:08)
[2017-09-17] MEDS ORDERED: POTASSIUM Cl (KCl) 50 ML IV PRN (14:08)
[2017-09-17] MEDS ORDERED: ONDANSETRON 4 MG/2 ML VIAL IVP PRN (14:08)
[2017-09-17] MEDS ORDERED: PANTOPRAZOLE SODIUM 40 MG VIAL IVP ONE ×2 (14:08→17:30)
[2017-09-17] MEDS ORDERED: LACTULOSE 20 GM/30 ML UDCUP PO PRN (14:08)
[2017-09-17] MEDS ORDERED: CEPACOL LOZENGE PO PRN (14:08)
[2017-09-17] MEDS ORDERED: SODIUM CL NASAL 45 ML BTL EACHNARE PRN (14:08)
[2017-09-17] MEDS ORDERED: MAGNESIUM SULF 2 GM/WATER 50 ML IV ONE (14:08)
[2017-09-17] MEDS ORDERED: POLYETHYLENE GLYCOL 3350 17 GM PKT PO PRN (14:08)
[2017-09-17] MEDS ORDERED: NS 1,000 ML IV SCH (14:15)
[2017-09-17] MEDS ORDERED: INSULIN REGULAR HUMAN 100 UNIT in NS 100 ML IV SCH (14:30)
--- NOTE | 2017-09-17 14:53 | GOP ---
[f rep st] OPERATIVE REPORT DATE OF OPERATION: 09/17/2017 SURGEON: Wally Munguia DO CROP NUTRITION SCIENTIST: Mc Herbert PA-C. ANESTHESIA: Kevin Ann M.D. PREOPERATIVE DIAGNOSIS: Unstable angina pectoris with severe 3-vessel disease. POSTOPERATIVE DIAGNOSIS: Unstable angina pectoris with severe 3-vessel disease with undiagnosed diab etes mellitus. PROCEDURE PERFORMED: 1. Urgent coronary artery bypass grafting x5 with the left internal mammary artery to the left anter ior descending, right internal mammary artery to the diagonal, saphenous vein graft to the 1st OM, sa phenous vein graft to the 2nd OM and saphenous vein graft to the right coronary artery. 2. Endoscopic vein harvest of both upper legs. 3. Left atrial appendage occlusion with AtriClip. FINDINGS: Patient was noted to have severe 3-vessel disease with unstable angina pectoris. DESCRIPTION OF PROCEDURE: He presented to the operating room, on heparin. He was intubated. Monito ring lines were placed. He was prepped and draped in sterile classical manner. Sternotomy was perfo rmed. Both mammaries were harvested. Both mammaries measured 2.5-2.8 mm with excellent brisk flow. He was heparinized, cannulated. Bypass was begun. A cardioplegic arrest was obtained with antegrad e cardioplegia, topical hypothermia, and systemic cooling. Initially, the right coronary artery was grafted beyond the takeoff of the PDA where it was a 2.5 mm vessel with thickened gonzalez. The vein was excellent quality and it was then anastomosed to the ascen ding aorta in a standard fashion with a cross-clamp on. We then proceeded with grafting the posterol ateral circumflex which was a 2.6-2.8 mm vessel proximally. It was somewhat thickened, but had a lar ge lumen. The vein was then brought off the ascending aorta in similar fashion. We then grafted the 1st OM, which was a 2 mm vessel, with good quality vein which was brought off the ascending aorta. Rewarming was begun while the right internal mammary artery was grafted to the diagonal, which was a 2 mm vessel. It was tacked to the epicardium. We then found the LAD deeply intramuscular. It was e xposed. It was grafted with the mammary, which was an excellent 2.6 mm vessel and a 2.6 mm artery. It was tacked to the epicardium. We then ligated the left atrial appendage with a #35 mm hemoclip. The cross-clamp was removed with suction on the ascending aortic vent. It should be noted that vein was harvested from both upper legs above the knee by GUILHERME Valderrama, who first assisted throughout t he procedure. Spontaneous cardiac activity was noted to resume. The patient was rewarmed, weaned from bypass. The heparin was reversed with protamine after the transesophageal echo confirmed good biventricular func tion. The EKG remained normal. The thymic fat and pericardium were closed. He had 2 ventricular pac ing wires, 2 pleural and 1 mediastinal drain. The chest was closed in standard fashion Patient was returned to ICU in stable condition. /[id number]/MODL
--- NOTE | 2017-09-17 15:16 | CPEKG ---
Heart Rate: 67 RR Interval: 896 P-R Interval: 184 QRSD Interval: 90 QT Interval: 436 QTC Interval: 461 P [place]: 56 QRS [place]: 1 T Wave [place]: 45 EKG Severity - NORMAL ECG - EKG Impression: SINUS RHYTHM Electronically Signed By: David Hernandez 17-Sep-2017 23:33:14
[2017-09-17] MEDS: DEXMEDETOMIDINE HCL 400 MCG in NS 100 ML IV SCH ×2 (15:30→20:15)
--- NOTE | 2017-09-17 16:33 | GCON ---
[f rep st] CONSULTATION PULMONARY/CRITICAL CARE CONSULTATION. DATE OF CONSULTATION: 09/17/2017 REFERRING PHYSICIAN: Wally Munguia DO REASON FOR CONSULTATION: Evaluation and management of respiratory failure status post cardiothoracic surgery. HISTORY: The patient is a 67-year-old male, with a history of hypertension, who was admitted 4 days ago after doing some vigorous exercise for the 1st time in a while. After this, he felt okay but wok e up later that morning with a midsternal chest heaviness, as well as shortness of breath. He presen mynor to the emergency department, where he was found to have a mildly elevated troponin. The troponin continued to rise, and so the patient was taken to the catheterization lab, where he was found to helm ve severe 3-vessel disease. His troponins peaked at 0.317. He was treated with aspirin and beta blo cker and underwent a CABG x5 today. His intraoperative course was unremarkable, but he was kept intu bated. PAST MEDICAL HISTORY: Borderline hypertension, borderline diabetes, hypothyroid, hyperlipidemia. ADMISSION MEDICATIONS: Include levothyroxine and acetaminophen if. CURRENT MEDICATIONS: Aspirin, a beta danelle, and rosuvastatin have been started. ALLERGIES: Aspirin, penicillin, and epinephrine. 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 He is . He denies smoking and drinks al cohol occasionally. FAMILY HISTORY: Unremarkable. REVIEW OF SYSTEMS: Unobtainable. PHYSICAL EXAMINATION: GENERAL: The patient is intubated and sedated. VITAL SIGNS: His blood press ure is 114/70, with heart rate of 73. His temperature is 35.4. His oxygen saturations are 95% on 60 % oxygen. HEENT: Normocephalic and atraumatic. No icterus. NECK: No JVD. Trachea is midline. C HEST: Clear to auscultation. CARDIAC: Regular rate and rhythm without murmur. He has a midline st ernotomy scar. ABDOMEN: Soft and nontender. Bowel sounds are hypoactive. EXTREMITIES: No clubbin g, cyanosis, or edema. NEURO: The patient is sedated and unresponsive. He has no spontaneous motor movement currently. LABORATORY AND X-RAY: A chemistry group is unremarkable. Glucose is 121. Hemoglobin A1c is 6.9. A repeat hemoglobin is pending. A chest x-ray shows no acute infiltrates. The endotracheal tube is i n appropriate position. Images reviewed by me. ASSESSMENT: 1. Status post CABG x5. The patient's intraoperative course was unremarkable. 2. Postoperative respiratory failure. The patient is currently intubated and sedated. An arterial blood gas shows a normal pH at 7.34 and pCO2 is 36, with a bicarbonate of 19, consistent with a mild metabolic acidosis. His oxygenation is adequate. 3. Metabolic acidosis. This is mild. 4. Diabetes. The patient has diabetes, with a hemoglobin A1c of 6.9. Blood sugars are currently mi ldly elevated. RECOMMENDATIONS: 1. Hold sedation and wean and extubate as tolerated, if he meets weaning parameters. 2. Follow blood sugars closely, using insulin to maintain blood sugars in the low-mid 100s. /[id number]/MODL
[2017-09-17] MEDS: ALBUMIN 5% 250 ML IV PRN ×3 (16:59→21:37)
[2017-09-17] MEDS: fentaNYL 100 MCG/2 ML INJ IVP PRN ×2 (18:00→19:27)
[2017-09-17] MEDS ORDERED: KETOROLAC 30 MG/1 ML SDV IVP ONE (19:45)
[2017-09-17] MEDS ORDERED: fentanYL/NACL/100 ML BAG IV ONE (19:52)
[2017-09-17] MEDS ORDERED: fentaNYL/NACL 100 ML IV SCH (20:02)
[2017-09-17] MEDS: METOCLOPRAMIDE 10 MG/2 ML VIAL IVP PRN (21:29)
[2017-09-17] MEDS: ceFAZolin 2 GM/SWFI 2 GM/20 ML SYR IVP SCH (21:29)
[2017-09-17] MEDS: MUPIROCIN 2% 22 GM OINT NS SCH (21:31)
[2017-09-17] MEDS ORDERED: ceFAZolin 2 GM/DEXTROSE 100 ML IV SCH (22:00)
[2017-09-17] MEDS: SENNOSIDES/DOCUSATE SODIUM TAB PO SCH (23:27)
[2017-09-18] MEDS: DEXMEDETOMIDINE HCL 400 MCG in NS 100 ML IV SCH ×2 (01:49→05:47)
--- NOTE | 2017-09-18 02:07 | CPEKG ---
Heart Rate: 71 RR Interval: 845 P-R Interval: 176 QRSD Interval: 84 QT Interval: 416 QTC Interval: 453 P [place]: 82 QRS [place]: -12 T Wave [place]: 35 EKG Severity - NORMAL ECG - EKG Impression: SINUS RHYTHM Electronically Signed By: David Hernandez 19-Sep-2017 08:20:48
[2017-09-18 04:09] LABS: PLATELET COUNT 135 10^3/uL (150-400)
[2017-09-18] MEDS: HEPARIN 5,000 UNIT/0.5 ML SYR SC SCH ×3 (05:43→20:37)
[2017-09-18] MEDS: ceFAZolin 2 GM/SWFI 2 GM/20 ML SYR IVP SCH ×3 (05:43→20:27)
[2017-09-18] MEDS: LEVOTHYROXINE 88 MCG TAB PO SCH (06:26)
--- NOTE | 2017-09-18 08:13 | SOAPPROG ---
SOAP Progress Note Assessment/Plan: POD #1: Urgent CABGx5 (HUDDLESTON-LAD, MARIA FERNANDA-D1, SVG-OM1, SVG-OM2, SVG-RCA), AtriClip FABRIZIO, EVH BL thighs Unstable angina/severe 3VD s/p urgent CABGx5 - CTs to bulb suction, AL/FC out - Plavix for graft thromboprophylaxis ("allergy" to ASA), statin and beta- danelle for secondary prevention when appropriate - SCDs/heparin SQ for DVT prophylaxis - PT/OT - Transfer to PCU Acute blood loss anemia - Stable without the need for transfusions DM 2 (HgbA1c 6.9), untreated - Hospitalist managing - Will stop insulin gtt and start ISS Hypothyroidism - Continue Synthroid Subjective: Has pain when taking deep breaths, otherwise no complaints. Objective: Vital Signs Temp Pulse Resp BP Pulse Ox 37.2 C 80 27 H 110/63 94 09/18/17 07:00 09/18/17 07:00 09/18/17 07:00 09/18/17 07:00 09/18/17 07:00 Laboratory Results 09/18/17 03:56 09/18/17 03:56 09/17/17 09/18/17 09/19/17 05:59 05:59 05:59 Intake Total 826 1698.6 Output Total 950 1225 Balance -124 473.6 PT 14.0 SEC (12.0-15.0) 09/14/17 18:26 INR 1.06 (0.83-1.16) 09/14/17 18:26 Physical Exam - Physical Exam General Appearance: WD/WN, alert, no apparent distress EENT: No scleral icterus (R), No scleral icterus (L) Neck: normal inspection Respiratory: No respiratory distress Cardiac/Chest: regular rate, rhythm Abdomen: non-tender, soft, No distended Skin: normal color, warm/dry Extremities: No pedal edema Neuro/Psych: no motor/sensory deficits, alert, normal mood/affect, oriented x 3 ICD10 Worksheet Patient Problems: Problems Problem Status Onset Chest pain Acute Diabetes Acute S/P CABG x 5 Acute
[2017-09-18] MEDS ORDERED: fentaNYL 25 MCG PATCH TD ONE (09:46)
--- NOTE | 2017-09-18 09:51 | POSTANESTH ---
Post Anesthetic Evaluation Cardiovascular Status: Tx Hyper/Hypo-tension Respiratory Status: Tx Decrease in SpO2 Level of Consciousness/Mental Status: Can Participate in Eval Pain Control: Adequate, Prn Tx Ordered Nausea/Vomiting Control: Adequate, Prn Tx Ordered Complications Possibly Related to Anesthesia: None Noted
[2017-09-18] MEDS: CLOPIDOGREL BISULFATE 75 MG TAB PO SCH (10:13)
[2017-09-18] MEDS: HYDROCODONE/APAP 5/325 TAB PO PRN ×2 (10:14→15:49)
[2017-09-18] MEDS: ONDANSETRON DISINTEGRATING 4 MG TAB PO PRN (10:14)
[2017-09-18] MEDS: PANTOPRAZOLE SODIUM 40 MG TAB PO SCH ×2 (10:14→10:33)
[2017-09-18] MEDS: SENNOSIDES/DOCUSATE SODIUM TAB PO SCH ×2 (10:14→20:36)
[2017-09-18] MEDS: MUPIROCIN 2% 22 GM OINT NS SCH ×2 (10:15→21:52)
[2017-09-18] MEDS: INSULIN LISPRO 100 UNIT/ML SC SCH ×2 (12:37→17:12)
[2017-09-18] MEDS: traMADol 50 MG TAB PO PRN ×3 (13:18→21:52)
[2017-09-18] MEDS: METOPROLOL TARTRATE 25 MG TAB PO SCH ×2 (14:56→20:34)
--- NOTE | 2017-09-18 16:44 | HOSPPROG ---
Hospitalist Progress Note Assessment/Plan: 67 yo M admitted with NSTEMI. cath revealed 3 vessel disease and he underwent 5v cabg 3/. Medicine following for diabetes management alone. All other care per CV surgery. cad s/p urgent cabg x5: POD #1 post-op care per CT surgery cont plavix, BB, statin dm: diet controlled with recent a1c 6.9 agree with transition to SSI aaliyah-operatively could start metformin at d/c, noting normal Cr, though defer for now while acutely post-op hypothyroidism: check tsh proph: PETE dispo: inpt risk: high Subjective: Pt doing well. Some incisional chest wall pain. No fevers. Objective: Vital Signs Temp Pulse Resp BP Pulse Ox 37.3 C 90 24 H 139/70 H 92 09/18/17 14:50 09/18/17 15:08 09/18/17 14:50 09/18/17 15:08 09/18/17 15:08 Laboratory Results 09/18/17 03:56 09/18/17 09:20 09/17/17 09/18/17 09/19/17 05:59 05:59 05:59 Intake Total 826 1698.6 412 Output Total 950 1225 290 Balance -124 473.6 122 PT 14.0 SEC (12.0-15.0) 09/14/17 18:26 INR 1.06 (0.83-1.16) 09/14/17 18:26 - Physical Exam Constitutional: no apparent distress Eyes: PERRL Ears, Nose, Mouth, Throat: moist mucous membranes Cardiovascular: regular rate and rhythym, no murmur, rub, or gallop Respiratory: no respiratory distress, clear to auscultation Gastrointestinal: normoactive bowel sounds, soft, non-tender abdomen Skin: warm Musculoskeletal: full muscle strength Neurologic: AAOx3 Psychiatric: interacting appropriately ICD10 Worksheet Patient Problems: Problems Problem Status Onset Chest pain Acute Diabetes Acute S/P CABG x 5 Acute
[2017-09-19] MEDS: HYDROCODONE/APAP 5/325 TAB PO PRN ×6 (00:11→21:30)
[2017-09-19 04:09] LABS: PLATELET COUNT 177 10^3/uL (150-400)
[2017-09-19] MEDS: traMADol 50 MG TAB PO PRN ×3 (06:33→14:29)
[2017-09-19] MEDS: LEVOTHYROXINE 88 MCG TAB PO SCH (06:33)
[2017-09-19] MEDS: HEPARIN 5,000 UNIT/0.5 ML SYR SC SCH ×3 (06:34→21:32)
[2017-09-19] MEDS: ceFAZolin 2 GM/SWFI 2 GM/20 ML SYR IVP SCH (06:34)
--- NOTE | 2017-09-19 07:10 | SOAPPROG ---
SOAP Progress Note Assessment/Plan: POD #2: Urgent CABGx5 (HUDDLESTON-LAD, MARIA FERNANDA-D1, SVG-OM1, SVG-OM2, SVG-RCA), AtriClip FABRIZIO, EVH BL thighs Unstable angina/severe 3VD s/p urgent CABGx5 - CTx2 and PW removed, 1 CT remains - Plavix for graft thromboprophylaxis ("allergy" to ASA), statin and beta- danelle for secondary prevention when appropriate - Continue Tramadol/[place] for pain - SCDs/heparin SQ for DVT prophylaxis - PT/OT Acute blood loss anemia - Stable without the need for transfusions DM 2 (HgbA1c 6.9), untreated - Hospitalist managing Hypothyroidism - Continue Synthroid Subjective: Extreme pain when taking deep breaths. Objective: Vital Signs Temp Pulse Resp BP Pulse Ox 36.8 C 92 19 125/82 H 94 09/19/17 04:00 09/19/17 04:00 09/19/17 04:00 09/19/17 04:00 09/19/17 04:00 Laboratory Results 09/19/17 03:40 09/19/17 03:40 09/18/17 09/19/17 09/20/17 05:59 05:59 05:59 Intake Total 1698.6 1242 Output Total 1225 1210 225 Balance 473.6 32 -225 PT 14.0 SEC (12.0-15.0) 09/14/17 18:26 INR 1.06 (0.83-1.16) 09/14/17 18:26 Physical Exam - Physical Exam General Appearance: WD/WN, alert, mild distress EENT: No scleral icterus (R), No scleral icterus (L) Neck: normal inspection Respiratory: No respiratory distress Cardiac/Chest: tachycardia Abdomen: non-tender, soft, No distended Skin: normal color, warm/dry Extremities: No pedal edema Neuro/Psych: no motor/sensory deficits, alert, normal mood/affect, oriented x 3 ICD10 Worksheet Patient Problems: Problems Problem Status Onset Chest pain Acute Diabetes Acute S/P CABG x 5 Acute
--- NOTE | 2017-09-19 07:17 | HOSPPROG ---
Hospitalist Progress Note Assessment/Plan: 67 yo M admitted with NSTEMI. cath revealed 3 vessel disease and he underwent 5v cabg 3/. Medicine following for diabetes management alone. All other care per CV surgery. cad s/p urgent cabg x5: POD #2 post-op care per CT surgery cont plavix, BB, statin dm: diet controlled with recent a1c 6.9, bg's mostly 100's, had elevated bg 267 at bedtime last night change to ACHS SSI for bedtime coverage could start metformin at d/c, noting normal Cr, though defer for now while acutely post-op hypothyroidism: tsh normal, cont outpt levothyroxine pain: post-op / incisional pain. Pt was reportedly hallucinatory, which may be from long acting opiate (has fentanyl patch on) would consider d/c'ing fentanyl patch in favor of short acting pain meds for acute post-op pain, defer to CV surg team proph: PETE dispo: inpt risk: high Subjective: Pt has quite a bit of pain, RN notes some hallucinations. No fevers. Objective: Vital Signs Temp Pulse Resp BP Pulse Ox 36.8 C 92 19 125/82 H 94 09/19/17 04:00 09/19/17 04:00 09/19/17 04:00 09/19/17 04:00 09/19/17 04:00 Laboratory Results 09/19/17 03:40 09/19/17 03:40 09/18/17 09/19/17 09/20/17 05:59 05:59 05:59 Intake Total 1698.6 1242 Output Total 1225 1210 225 Balance 473.6 32 -225 PT 14.0 SEC (12.0-15.0) 09/14/17 18:26 INR 1.06 (0.83-1.16) 09/14/17 18:26 - Physical Exam Constitutional: no apparent distress Eyes: PERRL Ears, Nose, Mouth, Throat: moist mucous membranes Cardiovascular: regular rate and rhythym Respiratory: no respiratory distress, clear to auscultation Gastrointestinal: normoactive bowel sounds, soft, non-tender abdomen Skin: warm Musculoskeletal: full muscle strength Neurologic: AAOx3 Psychiatric: interacting appropriately ICD10 Worksheet Patient Problems: Problems Problem Status Onset Chest pain Acute Diabetes Acute S/P CABG x 5 Acute
[2017-09-19] MEDS: INSULIN LISPRO 100 UNIT/ML SC SCH ×4 (08:45→21:31)
[2017-09-19] MEDS: METOPROLOL TARTRATE 25 MG TAB PO SCH ×2 (08:45→21:29)
[2017-09-19] MEDS: SENNOSIDES/DOCUSATE SODIUM TAB PO SCH ×2 (08:46→21:31)
[2017-09-19] MEDS: CLOPIDOGREL BISULFATE 75 MG TAB PO SCH (08:46)
[2017-09-19] MEDS: PANTOPRAZOLE SODIUM 40 MG TAB PO SCH (08:46)
[2017-09-19] MEDS: MUPIROCIN 2% 22 GM OINT NS SCH (10:08)
--- NOTE | 2017-09-19 10:40 | ASMTCMCOM ---
CM Note CM Note Notes: Reviewed chart and discussed w/RN. Pt is POD#2, still w/chest tube and requiring 4-5L O2. PT recommnding home. Pt lives at home w/. DC needs tbd, CM will follow. Date Signed: 09/19/2017 10:39 AM Electronically Signed By:Marcella Rice RN
[2017-09-19] MEDS: ROSUVASTATIN CALCIUM 20 MG TAB PO SCH (21:31)
[2017-09-19] MEDS ORDERED: AMIODARONE HCL 100 ML IV ONE (22:25)
[2017-09-19] MEDS ORDERED: METOPROLOL TARTRATE 25 MG TAB PO ONE (22:25)
[2017-09-19] MEDS ORDERED: AMIODARONE HCL 200 ML IV ONE (22:25)
[2017-09-19] MEDS ORDERED: AMIODARONE HCL 540 MG in D5W 300 ML IV ONE (22:25)
[2017-09-20] MEDS: HYDROCODONE/APAP 5/325 TAB PO PRN ×5 (02:13→23:44)
[2017-09-20] MEDS: METOCLOPRAMIDE 10 MG/2 ML VIAL IVP PRN (02:30)
[2017-09-20] MEDS: ONDANSETRON DISINTEGRATING 4 MG TAB PO PRN (02:30)
[2017-09-20] MEDS ORDERED: AMIODARONE HCL 540 MG in D5W 300 ML IV ONE (04:30)
[2017-09-20] MEDS: HEPARIN 5,000 UNIT/0.5 ML SYR SC SCH ×3 (06:35→22:48)
[2017-09-20] MEDS: LEVOTHYROXINE 88 MCG TAB PO SCH (06:35)
[2017-09-20] MEDS ORDERED: FUROSEMIDE 20 MG/2 ML VIAL IVP ONE (07:00)
--- NOTE | 2017-09-20 07:27 | SOAPPROG ---
SOAP Progress Note Assessment/Plan: Assessment: POD#3 Urgent CABGx5 (HUDDLESTON-LAD, MARIA FERNANDA-D1, SVG-OM1, SVG-OM2, SVG-RCA), AtriClip ligation FABRIZIO, EVH bilat thighs Unstable angina/severe 3VD s/p urgent CABGx5 with bilateral mammaries - CTx2 and PW removed, 1 CT remains - Plavix for graft thromboprophylaxis ("allergy" to ASA), statin and beta- danelle for secondary prevention when appropriate - Continue Tramadol/[place] for pain - SCDs/heparin SQ for DVT prophylaxis - PT/OT Postoperative PAF - Converted to SR on amio. - Sufficient BP to uptitrate BB. - High threshold for anticoagulation as FABRIZIO excluded. Acute blood loss anemia - Stable without the need for transfusions DM 2 (HgbA1c 6.9), untreated - Hospitalist managing Hypothyroidism - Continue Synthroid Plan: Cont amio as per protocol. Lasix 20 mg IV x 1. Cont metoprolol 50 mg BID. Inc activity as tolerated. Consider chest tube removal later today. 09/20/17 07:25 Subjective: Tired today. Aware of heart racing last night. Some dyspnea at the time, no dizziness. Objective: Vital Signs Temp Pulse Resp BP Pulse Ox 36.7 C 91 16 134/78 H 92 09/20/17 04:00 09/20/17 04:00 09/20/17 04:00 09/20/17 04:00 09/20/17 04:00 Laboratory Results 09/20/17 02:45 09/20/17 02:45 09/19/17 09/20/17 09/21/17 05:59 05:59 05:59 Intake Total 1242 1380 Output Total 1210 1175 Balance 32 205 PT 14.0 SEC (12.0-15.0) 09/14/17 18:26 INR 1.06 (0.83-1.16) 09/14/17 18:26 Brief AF last noc, responsive to amio and addtl BB. SBPs robust. Stable suppl O2 req. Balanced I/Os. CXR -> hypoventilation, bibasilar atelectasis, abundant bowel gas. CTOP approaching removal criteria. WBC sl elev, but downward trending. Afeb. Prob leukemoid rxn. Physical Exam - Physical Exam General Appearance: alert, no apparent distress Respiratory: decreased breath sounds (bases), crackles (scattered), other ( cierra x 1 to bulb suction, serosang drainage) Cardiac/Chest: regular rate, rhythm, other (Sternototmy and bilat venotomies CDI ) Abdomen: non-tender, soft Skin: warm/dry Extremities: swelling (1+ dependent) ICD10 Worksheet Patient Problems: Problems Problem Status Onset Chest pain Acute Diabetes Acute S/P CABG x 5 Acute
[2017-09-20] MEDS ORDERED: METOPROLOL TARTRATE 5 MG/5 ML INJ IVP ONE (07:40)
[2017-09-20] MEDS: traMADol 50 MG TAB PO PRN ×3 (07:40→18:32)
[2017-09-20] MEDS: SENNOSIDES/DOCUSATE SODIUM TAB PO SCH ×2 (07:42→23:45)
[2017-09-20] MEDS: CLOPIDOGREL BISULFATE 75 MG TAB PO SCH (07:42)
[2017-09-20] MEDS: METOPROLOL TARTRATE 50 MG TAB PO SCH ×2 (07:42→20:07)
--- NOTE | 2017-09-20 08:32 | HOSPPROG ---
Hospitalist Progress Note Assessment/Plan: 67 yo M admitted with NSTEMI. cath revealed 3 vessel disease and he underwent 5v cabg 3/. Medicine following for diabetes management alone. All other care per CV surgery. cad s/p urgent cabg x5: POD #3 post-op care per CT surgery on plavix, BB, statin dm: diet controlled with recent a1c 6.9, bg's mostly 100's cont ACHS SSI could start metformin at d/c, noting normal Cr, though defer for now while acutely post-op hypothyroidism: tsh normal, cont outpt levothyroxine pain: post-op / incisional pain. Pt was reportedly hallucinatory, possibly from Fentanyl patch, which was removed. pain better controlled on po meds proph: PETE dispo: inpt risk: high Subjective: Doing fine, pain control improved. Objective: Vital Signs Temp Pulse Resp BP Pulse Ox 36.7 C 91 16 134/78 H 92 09/20/17 04:00 09/20/17 04:00 09/20/17 04:00 09/20/17 04:00 09/20/17 04:00 Laboratory Results 09/20/17 02:45 09/20/17 02:45 09/19/17 09/20/17 09/21/17 05:59 05:59 05:59 Intake Total 1242 1380 Output Total 1210 1175 Balance 32 205 PT 14.0 SEC (12.0-15.0) 09/14/17 18:26 INR 1.06 (0.83-1.16) 09/14/17 18:26 - Physical Exam Constitutional: no apparent distress Eyes: PERRL Ears, Nose, Mouth, Throat: moist mucous membranes Cardiovascular: regular rate and rhythym Respiratory: no respiratory distress Skin: warm Musculoskeletal: full muscle strength Neurologic: AAOx3 Psychiatric: interacting appropriately ICD10 Worksheet Patient Problems: Problems Problem Status Onset Chest pain Acute Diabetes Acute S/P CABG x 5 Acute
[2017-09-20] MEDS: INSULIN LISPRO 100 UNIT/ML SC SCH ×4 (08:37→22:48)
[2017-09-20] MEDS: PANTOPRAZOLE SODIUM 40 MG TAB PO SCH (09:00)
[2017-09-20] MEDS: AMIODARONE HCL 200 MG TAB PO SCH (20:07)
[2017-09-20] MEDS: BISACODYL 10 MG SUPP PR PRN (20:21)
[2017-09-20] MEDS ORDERED: METHYLNALTREXONE BROMIDE 12 MG/0.6 ML INJ SC PRN (20:47)
[2017-09-21] MEDS: LEVOTHYROXINE 88 MCG TAB PO SCH (05:42)
[2017-09-21] MEDS: HEPARIN 5,000 UNIT/0.5 ML SYR SC SCH ×3 (05:42→22:08)
[2017-09-21] MEDS: traMADol 50 MG TAB PO PRN (05:44)
--- NOTE | 2017-09-21 06:43 | SOAPPROG ---
SOAP Progress Note Assessment/Plan: Assessment: POD#4 Urgent CABGx5 (HUDDLESTON-LAD, MARIA FERNANDA-D1, SVG-OM1, SVG-OM2, SVG-RCA), AtriClip ligation FABRIZIO, EVH bilat thighs Unstable angina/severe 3VD s/p urgent CABGx5 with bilateral mammaries - CTs and wires out - Plavix for graft thromboprophylaxis ("allergy" to ASA), statin and beta- danelle for secondary prevention when appropriate - Continue Tramadol/[place] for pain - SCDs/heparin SQ for DVT prophylaxis - PT/OT Postoperative PAF - Converted to SR on amio. - Sufficient BP to uptitrate BB. - High threshold for anticoagulation as FABRIZIO excluded. Acute blood loss anemia - Stable without the need for transfusions DM 2 (HgbA1c 6.9), untreated - Hospitalist managing Hypothyroidism - Continue Synthroid Plan: Cont amio as per protocol. Inc metoprolol to 75 mg BID. Inc activity as tolerated. Advance diet as tolerated. Dispo - Home +/- [place] in 2 days. 09/21/17 06:40 Subjective: Much less LUQ tenderness after abundant gas and some stool passed late last night. Reluctant to take narcs for fear of constipation and admits incisional pain impeding IS and mobility. Objective: Vital Signs Temp Pulse Resp BP Pulse Ox 37.1 C 90 20 155/96 H 92 09/21/17 04:00 09/21/17 04:00 09/21/17 04:00 09/21/17 04:00 09/21/17 04:00 Laboratory Results 09/20/17 02:45 09/20/17 02:45 09/20/17 09/21/17 09/22/17 05:59 05:59 05:59 Intake Total 1380 750.4 Output Total 1175 725 Balance 205 25.4 PT 14.0 SEC (12.0-15.0) 09/14/17 18:26 INR 1.06 (0.83-1.16) 09/14/17 18:26 PAF with CVR. Sufficient BP to inc BB. Moderate suppl O2 req, likely sec to splinting. Balanced I/Os. Below admit wt. Self imposed CL diet for LUQ gassy discomfort, full sensation yest. Relistor administered w good effect last noc. - Pending Discharge Pending Discharge Within 48 Hours: Yes Pending Discharge Date: 09/23/17 Pending Discharge Time: 11:00 Physical Exam - Physical Exam General Appearance: alert, no apparent distress Respiratory: crackles (coarse, LLL), other (poor IS) Cardiac/Chest: regular rate, rhythm, other (Sternotomy and Bilat LE venotomies CDI) Abdomen: normal bowel sounds (LQs), non-tender (to light palpation), soft, other (High pitched tinkling LUQ) Skin: warm/dry Extremities: swelling (1+ dependent) ICD10 Worksheet Patient Problems: Problems Problem Status Onset Chest pain Acute Diabetes Acute S/P CABG x 5 Acute
[2017-09-21] MEDS: PANTOPRAZOLE SODIUM 40 MG TAB PO SCH (10:05)
[2017-09-21] MEDS: SENNOSIDES/DOCUSATE SODIUM TAB PO SCH ×2 (10:05→22:07)
[2017-09-21] MEDS: FUROSEMIDE 40 MG/4 ML VIAL IVP SCH ×2 (10:05→15:59)
[2017-09-21] MEDS: METOPROLOL TARTRATE 50 MG TAB PO SCH ×2 (10:05→20:03)
[2017-09-21] MEDS: CLOPIDOGREL BISULFATE 75 MG TAB PO SCH (10:05)
[2017-09-21] MEDS: AMIODARONE HCL 200 MG TAB PO SCH ×2 (10:05→20:03)
[2017-09-21] MEDS: INSULIN LISPRO 100 UNIT/ML SC SCH ×4 (10:39→22:07)
--- NOTE | 2017-09-21 13:18 | HOSPPROG ---
Hospitalist Progress Note Assessment/Plan: 67 yo M admitted with NSTEMI. cath revealed 3 vessel disease and he underwent 5v cabg 09/17. Medicine following for diabetes management alone. All other care per CV surgery. cad s/p urgent cabg x5: post-op care per CT surgery on plavix, BB, statin dm: diet controlled with recent a1c 6.9, bg's mostly 100's cont ACHS SSI start metformin today hypothyroidism: tsh normal, cont outpt levothyroxine pain: post-op / incisional pain. Pt was reportedly hallucinatory, possibly from Fentanyl patch, which was removed. pain better controlled on po meds proph: PETE dispo: inpt Subjective: spme luq pain. constipated. Objective: Vital Signs Temp Pulse Resp BP Pulse Ox 37.0 C 115 H 16 101/76 95 09/21/17 12:00 09/21/17 12:00 09/21/17 12:00 09/21/17 12:00 09/21/17 12:00 Laboratory Results 09/20/17 02:45 09/20/17 02:45 09/20/17 09/21/17 09/22/17 05:59 05:59 05:59 Intake Total 1380 750.4 Output Total 1175 725 Balance 205 25.4 PT 14.0 SEC (12.0-15.0) 09/14/17 18:26 INR 1.06 (0.83-1.16) 09/14/17 18:26 - Physical Exam Constitutional: no apparent distress, appears nourished, not in pain Eyes: anicteric sclera, EOMI Ears, Nose, Mouth, Throat: moist mucous membranes, hearing normal Cardiovascular: regular rate and rhythym Respiratory: no respiratory distress Neurologic: AAOx3 Psychiatric: interacting appropriately, not anxious, not encephalopathic, thought process linear ICD10 Worksheet Patient Problems: Problems Problem Status Onset Chest pain Acute Diabetes Acute S/P CABG x 5 Acute
[2017-09-21] MEDS ORDERED: AMIODARONE HCL 100 ML IV ONE (15:50)
[2017-09-21] MEDS: METOCLOPRAMIDE 10 MG/2 ML VIAL IVP SCH ×3 (15:59→22:20)
[2017-09-21] MEDS ORDERED: METOCLOPRAMIDE 10 MG/2 ML VIAL IVP SCH (18:00)
[2017-09-21] MEDS: metFORMIN HCL 500 MG TAB PO SCH (18:21)
[2017-09-21] MEDS: POTASSIUM CL 20 MEQ TAB PO SCH (20:03)
[2017-09-22] MEDS: LEVOTHYROXINE 88 MCG TAB PO SCH (05:57)
[2017-09-22] MEDS: METOCLOPRAMIDE 10 MG/2 ML VIAL IVP SCH (05:57)
[2017-09-22] MEDS: HEPARIN 5,000 UNIT/0.5 ML SYR SC SCH ×3 (05:58→20:29)
[2017-09-22] MEDS: FUROSEMIDE 40 MG/4 ML VIAL IVP SCH (08:26)
[2017-09-22] MEDS: METOPROLOL TARTRATE 50 MG TAB PO SCH ×2 (08:26→20:24)
[2017-09-22] MEDS: POTASSIUM CL 20 MEQ TAB PO SCH (08:26)
[2017-09-22] MEDS: CLOPIDOGREL BISULFATE 75 MG TAB PO SCH (08:27)
[2017-09-22] MEDS: PANTOPRAZOLE SODIUM 40 MG TAB PO SCH (08:27)
[2017-09-22] MEDS: AMIODARONE HCL 200 MG TAB PO SCH ×2 (08:27→20:24)
[2017-09-22] MEDS: metFORMIN HCL 500 MG TAB PO SCH (08:27)
[2017-09-22] MEDS: INSULIN LISPRO 100 UNIT/ML SC SCH ×4 (08:50→21:25)
--- NOTE | 2017-09-22 08:52 | SOAPPROG ---
SOAP Progress Note Assessment/Plan: Assessment: POD#5 Urgent CABGx5 (HUDDLESTON-LAD, MARIA FERNANDA-D1, SVG-OM1, SVG-OM2, SVG-RCA), AtriClip ligation FABRIZIO, EVH bilat thighs Unstable angina/severe 3VD s/p urgent CABGx5 with bilateral mammaries - CTs and wires out - Plavix for graft thromboprophylaxis ("allergy" to ASA), statin and beta- danelle for secondary prevention when appropriate - Continue Tramadol/[place] for pain - SCDs/heparin SQ for DVT prophylaxis - PT/OT Postoperative PAF - Converted to SR on amio. - Sufficient BP to uptitrate BB. - High threshold for anticoagulation as FABRIZIO excluded. Postoperative ileus vs [place]'s - Persistent LUQ colic with distended bowel loops by CXR. - Await xray. Supportive therapy for now. Acute blood loss anemia - Stable without the need for transfusions DM 2 (HgbA1c 6.9), untreated - Hospitalist managing Hypothyroidism - Continue Synthroid Plan: NPO. Abd flat and upright xray. Relax diuresis. 09/22/17 08:51 Subjective: Ongoing lowgrade abd pains LUQ with occ sharp twinges to lung. Is passing gas and belching but having a bit more nausea. No appetite whatsoever. Objective: Vital Signs Temp Pulse Resp BP Pulse Ox 37.2 C 85 18 136/64 H 93 09/22/17 07:42 09/22/17 07:42 09/22/17 07:42 09/22/17 07:42 09/22/17 07:42 Laboratory Results 09/20/17 02:45 09/22/17 06:15 09/21/17 09/22/17 09/23/17 05:59 05:59 05:59 Intake Total 750.4 1150 Output Total 725 2175 150 Balance 25.4 -1025 -150 PT 14.0 SEC (12.0-15.0) 09/14/17 18:26 INR 1.06 (0.83-1.16) 09/14/17 18:26 SR 60s-80s w occ PAF. No hypotension. 4 lpm suppl O2 req. Diuresing well. Below admit wt. Afeb. Labs ok. Physical Exam - Physical Exam General Appearance: alert, no apparent distress Respiratory: crackles (bibasilar) Cardiac/Chest: regular rate, rhythm, other (Sternum grossly stable. Distal sternotomy with scant serous ooze.) Abdomen: normal bowel sounds (x4, no high pitched tinkling or rushes), non- tender (to light palp), soft Skin: warm/dry Extremities: swelling (trace dependent), other (bilat LE venotomies CDI) ICD10 Worksheet Patient Problems: Problems Problem Status Onset Chest pain Acute Diabetes Acute S/P CABG x 5 Acute
[2017-09-22] MEDS: SENNOSIDES/DOCUSATE SODIUM TAB PO SCH ×2 (10:15→20:24)
[2017-09-22] MEDS: BISACODYL 10 MG SUPP PR PRN (12:54)
--- NOTE | 2017-09-22 14:06 | HOSPPROG ---
Hospitalist Progress Note Assessment/Plan: 67 yo M admitted with NSTEMI. cath revealed 3 vessel disease and he underwent 5v cabg /. Medicine following for diabetes management alone. All other care per CV surgery. cad s/p urgent cabg x5: post-op care per CT surgery on plavix, BB, statin dm: diet controlled with recent a1c 6.9, bg's mostly 100's cont ACHS SSI metformin started here but will hold d/t ileus ileus * per cv surgery hypothyroidism: tsh normal, cont outpt levothyroxine pain: post-op / incisional pain. Pt was reportedly hallucinatory, possibly from Fentanyl patch, which was removed. pain better controlled on po meds proph: PETE dispo: inpt Subjective: decreased appettite. passing gas Objective: Vital Signs Temp Pulse Resp BP Pulse Ox 36.7 C 76 18 109/59 L 95 09/22/17 12:00 09/22/17 12:00 09/22/17 12:00 09/22/17 12:00 09/22/17 12:00 Laboratory Results 09/20/17 02:45 09/22/17 06:15 09/21/17 09/22/17 09/23/17 05:59 05:59 05:59 Intake Total 750.4 1150 240 Output Total 725 2175 1550 Balance 25.4 -1025 -1310 PT 14.0 SEC (12.0-15.0) 09/14/17 18:26 INR 1.06 (0.83-1.16) 09/14/17 18:26 - Physical Exam Constitutional: no apparent distress, appears nourished, not in pain Gastrointestinal: distension Neurologic: AAOx3 ICD10 Worksheet Patient Problems: Problems Problem Status Onset Chest pain Acute Diabetes Acute S/P CABG x 5 Acute
--- NOTE | 2017-09-22 15:35 | ASMTCMCOM ---
CM Note CM Note Notes: CM met w/ pt for dispo planning. PT is recommending home independent. OT is recommending HC. CM met w/ pt for dispo planning. Pt is interested in having HC. Pt would like CM to make referrals to HC agencies that accept [facility] [place] of [place]. CM sent out referrals. CM to follow. Plan: HC Date Signed: 09/22/2017 03:34 PM Electronically Signed By:NIMCO Moreno
[2017-09-23] MEDS: HEPARIN 5,000 UNIT/0.5 ML SYR SC SCH (06:13)
[2017-09-23] MEDS: LEVOTHYROXINE 88 MCG TAB PO SCH (06:13)
[2017-09-23 06:55] LABS: INR 1.1 (0.83-1.16); PROTIME(PATIENT) 14.4 SEC (12.0-15.0)
--- NOTE | 2017-09-23 06:58 | SOAPPROG ---
SOAP Progress Note Assessment/Plan: Assessment: POD#6 Urgent CABGx5 (HUDDLESTON-LAD, MARIA FERNANDA-D1, SVG-OM1, SVG-OM2, SVG-RCA), AtriClip ligation FABRIZIO, EVH bilat thighs Unstable angina/severe 3VD s/p urgent CABGx5 with bilateral mammaries - CTs and wires out - Secondary prevention with BB, statin, and Plavix ("allergy" to ASA). Plavix switched to NOAC d/t recurrent PAF. - Continue Tramadol for pain Postoperative PAF - Recurrent on amio and max tolerated BB. - Antithrombotic prophylaxis switched to Eliquis for [id number] score of 4. Postoperative ileus - Persistent LUQ colic with distended small bowel and rare A:F levels by XRay. - Resolving with supportive therapies. Acute blood loss anemia - Stable without the need for transfusions DM 2 (HgbA1c 6.9), untreated - Hospitalist managing Hypothyroidism - Continue Synthroid Plan: Advance to full liquid diet. Switch Plavix to Eliquis. Cont inc activity as tolerated. Wean O2. Dispo - Home tomorrow if medically stable. 09/23/17 06:55 Subjective: Much better after enema. Belly soft, breathing easier and appetite returning. Objective: Vital Signs Temp Pulse Resp BP Pulse Ox 37.2 C 86 18 119/81 H 97 09/23/17 04:00 09/23/17 04:00 09/23/17 04:00 09/23/17 04:00 09/23/17 04:00 Laboratory Results 09/23/17 06:15 09/22/17 06:15 09/22/17 09/23/17 09/24/17 05:59 05:59 05:59 Intake Total 1150 480 Output Total 2175 2550 Balance -1025 -2070 PT 14.0 SEC (12.0-15.0) 09/14/17 18:26 INR 1.06 (0.83-1.16) 09/14/17 18:26 Ongoing bursts of PAF. Insufficient BP to safely inc BB. Excellent sats on 4 lpm, likely could wean to 3lpm. Autodiuresing well. 5 kg below admit wt. Ongoing normalization of WBC. Physical Exam - Physical Exam General Appearance: alert, no apparent distress Respiratory: other (improved insp effort) Cardiac/Chest: regular rate, rhythm, other (Sternum grossly stable. ) Abdomen: normal bowel sounds, non-tender, soft Skin: warm/dry Extremities: swelling (trace) ICD10 Worksheet Patient Problems: Problems Problem Status Onset Chest pain Acute Diabetes Acute S/P CABG x 5 Acute
[2017-09-23] MEDS: INSULIN LISPRO 100 UNIT/ML SC SCH ×3 (09:42→18:18)
[2017-09-23] MEDS: APIXABAN 2.5 MG TAB PO SCH ×2 (09:43→22:36)
[2017-09-23] MEDS: METOPROLOL TARTRATE 50 MG TAB PO SCH ×2 (09:43→22:29)
[2017-09-23] MEDS: SENNOSIDES/DOCUSATE SODIUM TAB PO SCH ×2 (09:44→22:36)
[2017-09-23] MEDS: PANTOPRAZOLE SODIUM 40 MG TAB PO SCH (09:44)
[2017-09-23] MEDS: AMIODARONE HCL 200 MG TAB PO SCH ×2 (09:44→22:36)
--- NOTE | 2017-09-23 14:02 | ASMTCMCOM ---
CM Note CM Note Notes: CM met w/ pt and for dispo planning. [facility] accepted pt. CM provided pt the phone number for [facility]. CM to follow. Plan: OT, PT, RN Date Signed: 09/23/2017 02:01 PM Electronically Signed By:NIMCO Moreno
--- NOTE | 2017-09-23 14:16 | HOSPPROG ---
Hospitalist Progress Note Assessment/Plan: #CAD: POD #6 emergent 5V-CABG #Post-op ileus: denies N/V. Check K, Phos. Repeat AXR shows improvement #Diabetes: glucose controlled with Metformin #Hypothyroidism: LT4 #Diet: clear diet. NPO if N/V #DVT ppx: Eliquis #Disp: please call if questions Subjective: No N/V. Passing some gas. Had BM yesterday Objective: Vital Signs Temp Pulse Resp BP Pulse Ox 37.2 C 73 18 119/79 96 09/23/17 12:00 09/23/17 12:00 09/23/17 12:00 09/23/17 12:00 09/23/17 12:00 Laboratory Results 09/23/17 06:15 09/22/17 06:15 09/22/17 09/23/17 09/24/17 05:59 05:59 05:59 Intake Total 1150 480 Output Total 2175 2550 Balance -1025 -2070 PT 14.4 SEC (12.0-15.0) 09/23/17 06:15 INR 1.10 (0.83-1.16) 09/23/17 06:15 - Physical Exam Constitutional: no apparent distress, obese Eyes: PERRL Ears, Nose, Mouth, Throat: moist mucous membranes, hearing normal Cardiovascular: tachycardia, other (sternal chest incision healing well. ) Respiratory: no respiratory distress Gastrointestinal: distension (mild distension, +BS throughout) Skin: warm Musculoskeletal: full muscle strength, other (left leg incision stapled. CDI) Neurologic: AAOx3, CN II-XII Intact ICD10 Worksheet Patient Problems: Problems Problem Status Onset Chest pain Acute Diabetes Acute S/P CABG x 5 Acute
[2017-09-24] MEDS: INSULIN LISPRO 100 UNIT/ML SC SCH ×3 (00:51→13:07)
[2017-09-24] MEDS: LEVOTHYROXINE 88 MCG TAB PO SCH (04:35)
--- NOTE | 2017-09-24 07:43 | SOAPPROG ---
[facility] Progress Note Assessment/Plan: POD#7 Urgent CABGx5 (HUDDLESTON-LAD, MARIA FERNANDA-D1, SVG-OM1, SVG-OM2, SVG-RCA), AtriClip ligation FABRIZIO, EVH bilat thighs Unstable angina/severe 3VD s/p urgent CABGx5 with bilateral mammaries - CTs and wires out - Secondary prevention with BB, statin, and Plavix ("allergy" to ASA). Plavix switched to NOAC d/t recurrent PAF. - Continue Tramadol for pain Postoperative PAF - Resolved, currently in SR 80's on amio and max tolerated BB. - Antithrombotic prophylaxis switched to Eliquis for [id number] score of 4. Postoperative ileus - Persistent LUQ colic with distended small bowel and rare A:F levels by XRay. - Continues to resolve with minimal abd distension. - Tolerating regular diet this am without nausea. - Passing flatus and had BM x 3 today. Acute blood loss anemia - Stable without the need for transfusions DM 2 (HgbA1c 6.9), untreated preop - Hospitalist managing who is recommending that patient is discharged on Metformin 500mg BID. - Patient was instructed to see his PCP in one week for DM management. Hypothyroidism - Continue Synthroid Plan: Continue regular diet as tolerated. Patient will follow up with PCP in 1 week for DM management. D/c home on 2L [place] home O2. D/c home today. Subjective: Patient reports good pain control. Patient's is requesting a small rx of Lasix just in case patient needs it at home for leg swelling or SOB. Objective: Vital Signs Temp Pulse Resp BP Pulse Ox 37 C 71 16 134/71 H 95 09/24/17 04:00 09/24/17 04:00 09/24/17 04:00 09/24/17 04:00 09/24/17 04:00 Laboratory Results 09/23/17 06:15 09/24/17 04:15 09/23/17 09/24/17 09/25/17 05:59 05:59 06:59 Intake Total 480 600 Output Total 2550 600 Balance -2070 0 PT 14.4 SEC (12.0-15.0) 09/23/17 06:15 INR 1.10 (0.83-1.16) 09/23/17 06:15 Physical Exam - Physical Exam General Appearance: WD/WN, alert, no apparent distress Respiratory: decreased breath sounds (bases), crackles (bases) Cardiac/Chest: regular rate, rhythm, other (no murmur, sternum stable, sternotomy c/d/i) Abdomen: normal bowel sounds, non-tender, soft, other (non-distended) Skin: warm/dry Extremities: other (mild lower extremity edema) Neuro/Psych: alert, normal mood/affect ICD10 Worksheet Patient Problems: Problems Problem Status Onset Chest pain Acute Diabetes Acute S/P CABG x 5 Acute
[2017-09-24] MEDS: AMIODARONE HCL 200 MG TAB PO SCH (08:12)
[2017-09-24] MEDS: METOPROLOL TARTRATE 50 MG TAB PO SCH (08:13)
[2017-09-24] MEDS: SENNOSIDES/DOCUSATE SODIUM TAB PO SCH (08:13)
[2017-09-24] MEDS: PANTOPRAZOLE SODIUM 40 MG TAB PO SCH (08:14)
[2017-09-24] MEDS: APIXABAN 2.5 MG TAB PO SCH (08:14)
[2017-09-24] MEDS ORDERED: FUROSEMIDE 40 MG TAB PO PRN (11:25)
[2017-09-24 11:26] VITALS: BP 118/69; PULSE 75; RESP 18; TEMP 99; O2SAT 97
[2017-09-24] MEDS ORDERED: POTASSIUM CL 20 MEQ TAB PO PRN (11:28)
--- NOTE | 2017-09-24 11:44 | PDHOMEO2F ---
Home Oxygen Face to Face Home Orders: I certify that a physician or a nurse practitioner or physician's drilling assistant has had a [id number] encounter with this patient on the date of this order due to the diagnosis listed, which relates to the primary reason the patient requires home oxygen. Alternative treatments have been tried, or considered, and deemed ineffective. It is anticipated that supplemental oxygen will result in improvement with treatment. Home oxygen qualifying diagnosis: respiratory insufficiency, s/p CABG SpO2 on room air (%): 85 Frequency of home oxygen needed: continuous Home oxygen liters per minute: 2 Home oxygen delivery device: nasal cannula Concentrator: Yes E-tanks for mobility and back up: Yes If ordering portable O2, is the patient mobile in the home?: Yes I certify that, based on these findings, the home oxygen is medically necessary for this patient for the following length of time. Length of time home oxygen needed: 99 years
--- NOTE | 2017-09-24 12:45 | PDIAF ---
- Diagnosis Diagnosis: CAD Code Status: Full Code - Medication Management Discharge Medications: Medications to Continue on Transfer Levothyroxine [Synthroid 88 mcg (*)] 88 mcg PO DAILY06 11/12/12 [Last Taken ] Acetaminophen [Tylenol 325mg (*)] 325 mg PO DAILY PRN 09/14/17 [Last Taken Unknown] Amiodarone HCl [Pacerone (*)] 200 mg PO BID 14 Days #60 tab 09/24/17 [Last Taken Unknown] Apixaban [Eliquis] 2.5 mg PO BID 30 Days tab 09/24/17 [Last Taken Unknown] Furosemide [Lasix 40 MG (*)] 40 mg PO DAILY PRN #5 tab 09/24/17 [Last Taken Unknown] Levothyroxine [Synthroid 88 mcg (*)] 88 mcg PO DAILY06 tab 09/24/17 [Last Taken Unknown] Metoprolol Tartrate [Lopressor 50 mg (*)] 75 mg PO BID 30 Days tab 09/24/17 [ Last Taken Unknown] Potassium Cl [Klor-Con 20 meq (*)] 20 meq PO DAILY PRN #5 tab 09/24/17 [Last Taken Unknown] Rosuvastatin Calcium [Crestor 20mg (*)] 20 mg PO HS #90 tab 09/24/17 [Last Taken Unknown] metFORMIN HCL [Glucophage 500 mg (*)] 500 mg PO BIDMEAL #60 tab 09/24/17 [Last Taken Unknown] traMADol [Ultram 50 mg (*)] 50 mg PO Q6HRS PRN #50 tab 09/24/17 [Last Taken Unknown] Discharge Medications: Refer to the Discharge Home Medication list for PRN reason. - Orders Services needed: Physical Therapy, Occupational Therapy Diet Recommendation: cardiac -low fat low salt ( as tolerated) Diet Texture: Regular Texture Diet - Follow Up Care Current Providers and Referrals: Wally Munguia DO [Doctor of Osteopathy] - 10/04/17 10:30 am Patient,NotPresent [Unknown] - Richie Bustamante MD [Medical Doctor] - (Follow up in 4-6 weeks. Appt to be established during surgical visit.)
--- NOTE | 2017-09-24 12:55 | ASMTCMCOM ---
CM Note CM Note Notes: Chart reviewed for discharge needs. Medically stable for discharge per [facility].Patient dcd to [facility] with [facility] for PT and OT. Final orders via allscripts. CM availalbe should other needs arise. Date Signed: 09/24/2017 12:54 PM Electronically Signed By:Maddi Head RN
--- NOTE | 2017-09-24 12:57 | HOSPPROG ---
Hospitalist Progress Note Assessment/Plan: #CAD: POD #7 emergent 5V-CABG #Post-op ileus: resolved, having BMs #Diabetes: A1c 6.9%. Educated on metformin, glucometer #Hypothyroidism: LT4 #Diet: clear diet. NPO if N/V #DVT ppx: Eliquis Educated on diet. Recommend FU with PCP in 1 week Subjective: no CP or SOB Objective: Vital Signs Temp Pulse Resp BP Pulse Ox 37.2 C 75 18 118/69 97 09/24/17 11:22 09/24/17 11:22 09/24/17 11:22 09/24/17 11:22 09/24/17 11:22 Laboratory Results 09/23/17 06:15 09/24/17 04:15 09/23/17 09/24/17 09/25/17 05:59 05:59 06:59 Intake Total 480 600 Output Total 2550 600 Balance -2070 0 PT 14.4 SEC (12.0-15.0) 09/23/17 06:15 INR 1.10 (0.83-1.16) 09/23/17 06:15 - Physical Exam Constitutional: no apparent distress Eyes: PERRL Ears, Nose, Mouth, Throat: moist mucous membranes Cardiovascular: regular rate and rhythym, other (surgical incision chest healing well) Respiratory: no respiratory distress Gastrointestinal: normoactive bowel sounds, soft, non-tender abdomen Genitourinary: no bladder fullness Skin: warm Musculoskeletal: full muscle strength Neurologic: AAOx3, CN II-XII Intact ICD10 Worksheet Patient Problems: Problems Problem Status Onset Chest pain Acute Diabetes Acute S/P CABG x 5 Acute
--- NOTE | 2017-09-24 13:13 | ASMTCMCOM ---
CM Note CM Note Notes: Call to [facility] as patient is to go to his son's home in [place].Edit done to referral with correct information and phone number. CM available should other needs arise. Date Signed: 09/24/2017 01:13 PM Electronically Signed By:Maddi Head RN
--- NOTE | 2017-09-25 14:45 | GDS ---
[f rep st] DISCHARGE SUMMARY SURGEON: Dr. Wally Munguia. DISCHARGE DIAGNOSIS: Coronary artery disease, unstable angina. CONDITION ON DISCHARGE: Stable. REASON FOR HOSPITALIZATION: Unstable angina with severe 3 vessel coronary artery disease. HOSPITAL COURSE: The patient is a 67-year-old male, who was taken to the operating room by Dr. Wally Munguia on September 17, 2017, where he underwent urgent coronary artery bypass grafting x5, with the left internal mammary artery to the left anterior descending, the right internal mammary artery to the lambert gonal, saphenous vein graft to the 1st OM, saphenous vein graft to the 2nd OM, and saphenous vein gra ft to the right coronary artery. He also had his left atrial appendage occluded with an AtriClip. T he patient tolerated the procedure well and was transferred to the ICU in stable condition. The mee ent was extubated without complications on postoperative day zero, and was transferred to PCU on post operative day 1. The patient was started on Plavix for graft thromboprophylaxis due to his allergy t o aspirin. The hospitalist team managed the patient's type 2 diabetes postoperatively. The patient developed postoperative paroxysmal atrial fibrillation for which he was initiated on amiodarone, whic h converted the patient back to sinus rhythm. He developed postoperative ileus versus [place]'s with left upper quadrant pain and distended loops of bowel seen on chest x-ray. Patient had recurrence o f his atrial fibrillation for which his Plavix was switched to Eliquis. The patient's diet was slowly advanced due to his ileus, which did resolve over the next couple of days. The patient was able to tolerate a regular diet without nausea, was passing flatus, and had bowel movements. His tubes and w ires were removed without complications. The patient's pain was controlled and he was deemed appropri ate for discharge to home on postoperative day 7. The hospitalist managing the patient recommended t hat the patient be discharged on metformin 500 mg b.i.d., which is new to patient. The patient was i nstructed to follow up with his primary care physician in 1 week for management of his diabetes. The patient was discharged on 2 L of home oxygen. MEDICATIONS AT DISCHARGE: 1. Amiodarone 200 mg p.o. b.i.d. for 14 days, then 200 mg daily. 2. Eliquis 2.5 mg p.o. b.i.d. 3. Lasix 40 mg p.o. daily x5 days. 4. Synthroid 88 mcg p.o. daily. 5. Metformin 500 mg p.o. b.i.d. with meals. 6. Metoprolol 76 mg p.o. b.i.d. 7. Potassium chloride 20 mEq p.o. daily x5 days. 8. Crestor 20 mg p.o. q.h.s. 9. Tramadol 50 mg p.o. q.6 hours p.r.n. pain. PHYSICAL EXAMINATION DAY OF DISCHARGE: GENERAL APPEARANCE: Well-developed, well-nourished, alert, n o apparent distress. RESPIRATORY: Decreased breath sounds at the bases, crackles at the bases. CAR DIAC/CHEST: Regular rate and rhythm, no murmur, sternum stable. Sternotomy clean, dry and intact. ABDOMEN: Normal bowel sounds, nontender, soft, and nondistended. SKIN: Warm and dry. EXTREMITIES: Mild lower extremity edema. NEUROLOGIC/PSYCH: Alert with normal mood and affect. INSTRUCTIONS PROVIDED TO PATIENT AT THE TIME OF DISCHARGE: Patient was instructed to observe sternal precautions for 6-8 weeks. He is not allowed to drive for 2 weeks or while he is taking narcotics. He is not allowed to lift, push or pull more than 15 pounds for 6-8 weeks. He is to continue with a diabetic diet. He should shower daily, and is not permitted to submerge his incisions in water, suc h as bathing, swimming or hot tubs, until his incisions are completely healed. FOLLOW UP APPOINTMENTS: The patient should follow up with his surgeon, Dr. Wally Munguia in 10 days. He should also follow up with his beach attendant in 4 weeks or as directed. Copy requested to: Patient's beach attendant /[id number]/MODL
--- NOTE | 2017-09-25 18:02 | ASDISCHSUM ---
Discharge Information Plan Status:Home with Home Health Medically Cleared to Leave:09/23/2017 Discharge Date:09/24/2017 04:33 PM D/C Disposition:Home Health Service [facility] D/C Disposition:Home, Routine, Self-Care Projected Discharge Date:09/23/2017 11:00 AM Transportation at D/C: Discharge Delay Reason: Follow-Up Date:09/23/2017 11:00 AM Discharge Slot: Final Diagnosis: Placement Information Referral Type:*Home Health Care Services Referral ID:[id number] Provider Name:[facility] Address 1:[address] Address 2: City:[place] Selection Factors: State:[place] Patient Contact Information Contact Name:EMIR Relationship: Address:[address] City:[place] Alternate Phone: State/Zip Code:[place] [address] Email: Financial Information Financial Class:HMO and PPO Plans Primary Plan Desc: OUT OF STATE PPO Primary Plan Number:[id number] Secondary Plan Desc: Secondary Plan Number: Assessment Information [facility] Initial CM Assessment Living Arrangements What is your living Answers: With Spouse arrangement? Who do you live with? Type Of Residence What kind of residence do Answers: House you live in? Discharge Plan Comments Coordination Status Comments Notes: Pts case reviewed in morning rounds. Pt is a 67 y/o man admitted for chest pain. Pt is currently NPO at this moment. Pt is being seen by cardiology. Pt will most likely d/c independent when medically stable. No therapies ordered at this time. CM available for changes. Plan: Independent Date Signed: 09/14/2017 01:47 PM Electronically Signed By:NIMCO Moreno [facility] CM Progress Note CM Note CM Note Notes: Pts case discussed in morning rounds. Pt will need to have a bypass surgery. Pt will most likely have the open heart tomorrow. CM to follow for d/c needs. Plan: Independent Date Signed: 09/16/2017 02:07 PM Electronically Signed By:NIMCO Moreno [facility] CM Progress Note CM Note CM Note Notes: Reviewed chart and discussed w/RN. Pt is POD#2, still w/chest tube and requiring 4-5L O2. PT recommnding home. Pt lives at home w/. DC needs tbd, CM will follow. Date Signed: 09/19/2017 10:39 AM Electronically Signed By:Marcella Rice RN [facility] CM Progress Note CM Note CM Note Notes: CM met w/ pt for dispo planning. PT is recommending home independent. OT is recommending HC. CM met w/ pt for dispo planning. Pt is interested in having HC. Pt would like CM to make referrals to HC agencies that [facility] CM sent out referrals. CM to follow. Plan: HC Date Signed: 09/22/2017 03:34 PM Electronically Signed By:NIMCO Moreno [facility] CM Progress Note CM Note CM Note Notes: CM met w/ pt and for dispo planning. [facility] accepted pt. CM provided pt the phone number for [facility]. CM to follow. Plan: OT, PT, RN Date Signed: 09/23/2017 02:01 PM Electronically Signed By:NIMCO Moreno [facility] CM Progress Note CM Note CM Note Notes: Chart reviewed for discharge needs. Medically stable for discharge per [facility].Patient dcd to [facility] with [facility] for PT and OT. Final orders via allscripts. CM availalbe should other needs arise. Date Signed: 09/24/2017 12:54 PM Electronically Signed By:Maddi Head RN [facility] CM Progress Note CM Note CM Note Notes: Call to [facility] as patient is to go to his son's home in [place].Edit done to referral with correct information and phone number. CM available should other needs arise. Date Signed: 09/24/2017 01:13 PM Electronically Signed By:Maddi Head RN Intervention Information
== END 2017-09-24 16:33 | disposition home health service (06) | DRG 234 ==
LOC: CED 04:04 → CEDHOLD 05:06 → OBSVTOIN 05:06 → CEDHOLD 06:27 → F2W 06:50 → F2N 09-17 08:52 → F2W 09-18 12:59
PROVIDERS: ADMIT Family Medicine; ATTEND Thoracic Surgery (Cardiothoracic Vascular Surgery)
DX: I21.4 Non-ST elevation (NSTEMI) myocardial infarction (principal); I25.10 Atherosclerotic heart disease of native coronary artery without angina pectoris; I97.89 Other postprocedural complications and disorders of the circulatory system, not elsewhere classified; I48.0 Paroxysmal atrial fibrillation; K56.7 Ileus, unspecified; D62 Acute posthemorrhagic anemia; E11.65 Type 2 diabetes mellitus with hyperglycemia; I10 Essential (primary) hypertension; E78.5 Hyperlipidemia, unspecified; E03.9 Hypothyroidism, unspecified; N40.0 Benign prostatic hyperplasia without lower urinary tract symptoms
CPT/HCPCS: 71045-PO; 80048-PO; 80076-PO; 82947-QW; 83690-PO; 84484-PO; 85025-PO; 85520-90; 97116-GP; 97161-GP; 97165-GO; 97530-GO; 97530-GP; 97535-GO; C1769; G8978-GP-CK; G8979-GP-CI; J0153; J0282; J0690; J1100; J1265; J1644; J1815; J1885; J1940; J2001; J2150; J2212; J2250; J2260; J2270; J2370; J2405; J2440; J2704; J2720; J2765; J2930; J3010; J3475; J7060; P9041; Q9967

== ENCOUNTER → 2017-10-04 | Outpatient (CLI) | payer BC | LOC: FIMAGING 10:22 | PROVIDERS: ATTEND Thoracic Surgery (Cardiothoracic Vascular Surgery) | DX: Z95.1 Presence of aortocoronary bypass graft (principal); J98.11 Atelectasis; J90 Pleural effusion, not elsewhere classified ==

== ENCOUNTER → 2017-10-11 | Outpatient (CLI) | payer BC | LOC: FIMAGING 10:29 | PROVIDERS: ATTEND Thoracic Surgery (Cardiothoracic Vascular Surgery) | DX: Z09 Encounter for follow-up examination after completed treatment for conditions other than malignant neoplasm (principal); Z95.1 Presence of aortocoronary bypass graft ==

== ENCOUNTER → 2017-11-09 | Outpatient (CLI) | payer BC | LOC: FIMAGING 13:03 | PROVIDERS: ATTEND Nurse Practitioner Adult Health | DX: J90 Pleural effusion, not elsewhere classified (principal); I10 Essential (primary) hypertension; E11.9 Type 2 diabetes mellitus without complications; Z79.899 Other long term (current) drug therapy; Z98.890 Other specified postprocedural states ==